=== PATIENT | female | born 1960 | race Caucasian/White ===

== ENCOUNTER → 2017-09-30 | Day surgery (SDC) | payer MEDICARE ==
[2017-09-28 13:54] LABS: BASOPHILS % 0.1 % (0.0-1.0); EOSINOPHILS # (AUTO) 0.1 (0.0-0.4); EOSINOPHILS % 0.9 % (0.0-6.0); HEMATOCRIT 33.5 % (34.2-44.1); HEMOGLOBIN 10.7 g/dL (12.0-16.0); LYMPHOCYTES % 21.6 % (18.0-39.1); MEAN CORPUSCULAR HEMOGLOBIN 27.9 pg (28-32); MEAN CORPUSCULAR HGB CONC 31.9 g/dL (31-35); MEAN CORPUSCULAR VOLUME 87.5 fL (81-99); MONOCYTES # (AUTO) 0.8 (0.2-0.8); MONOCYTES % 8.9 % (4.4-11.3); NEUTROPHILS # (AUTO) 6.2 (2.1-6.9); NEUTROPHILS % 68.1 % (38.7-80.0); PLATELET COUNT 203 x10e3/uL (140-360); RED BLOOD COUNT 3.83 x10e6/uL (3.6-5.1); RED CELL DISTRIBUTION WIDTH 14.3 % (11.7-14.4)
[~2017-09-30] MED LIST: ALBUTEROL0.63 MG/3 INH; ALPRAZOLAM0.5 M1 PO; ALPRAZOLAM0.5 MG; ASPIRIN BUFFER325 MG PO; ASPIRIN81 MG PO; BENTYL10 MG PO; CELLCEPT500 MG PO; COLCRYS0.6 MG PO; CYCLOBENZAPRINE5 MG PO; CYMBALTA60 MG PO; DEXILANT60 MG PO; DIAMOX250 MG PO; DILTIAZEM PO; FENOFIBRATE145 MG PO; HUMALOG100 UNIT/1 SC; HYDROCO/APAP; IMURAN50 MG PO; ISOSORBIDE DINI30 MG; ISOSORBIDE MONO30 M1 PO; LANTUS 3ML100 UNITS/ PO; LEVEMIR100 UNIT/1 SC; LINZESS PO; LYRICA150 MG PO; LYRICA75 MG PO; METOPROLOL SUCC50 MG PO; METOPROLOL TART50 MG PO; MIDAZOLAM HCL 2 MG/2 ML VIAL ONE; MONTELUKAST SOD10 MG PO; MORPHABOND PO; NITROSTAT0.4 MG SL; NORCO 10-325 T1 EACH PO; NOVOLOG MIX 70-33 M1 SC; NOVOLOG MIX 70-33 M1 SQ; NOVOLOG100 UNIT/1 SQ; PANTOPRAZOLE 40 MG 10ML VIAL ONE; PANTOPRAZOLE SO40 MG PO; PENTOXIFYLLINE400 MG PO; PLAVIX75 MG PO; PREDNISONE10 MG PO; PRINIVIL20 MG PO; PROPOFOL IV EMULSION 10 MG/ML 20 ML VIAL ONE; RANEXA500 MG PO; SIMVASTATIN40 MG PO; SYMBICORT 16010.2 GM; VERAMYST10 GM INH; XOPENEX; Z ERYTHROMYCIN PO; Z.0.GLUCOPHAGE500 MG PO; Z.0.PROTONIX40 MG PO; Z.0.RESTORIL30 MG PO; Z.0.SOMA350 MG PO; Z.1.CARBAMAZEPINE200 PO; Z.1.DOXYCYCLINE HY10 PO; ZOFRAN4 MG PO; ZYRTEC10 MG PO; [UNRECOGNIZED DRUG - OTHER] PO; [UNRECOGNIZED DRUG - OTHER] PO
--- OUTSIDE RECORDS SUMMARY | 2017-09-30 11:07 | XMS REPORT | Clinical Summary ---
Author Author [facility] Address Unknown Phone Unavailable Care Team Providers Care Machine Welt Butter Name Role Phone PCP Unavailable Allergies Active Allergy Reactions Severity Noted Date Comments Adhesive Rash Low 05/14/2015 Current Medications Prescription Sig. Disp. Refills Start End Date Status Date fenofibrate micronized Take 134 mg by mouth Active (LOFIBRA) 134 MG capsule every morning before breakfast. temazepam (RESTORIL) 30 Take 30 mg by mouth every Active mg capsule night as needed for Sleep. budesonide-formoterol Inhale 2 puffs by mouth Active (SYMBICORT) 160-4.5 via inhaler 2 (two) times mcg/actuation inhaler daily. clopidogrel (PLAVIX) 75 Take 75 mg by mouth Active mg tablet daily. mycophenolate (CELLCEPT) Take by mouth 2 (two) Active 500 mg tablet times daily. aspirin 81 MG EC tablet Take 81 mg by mouth Active daily. ALPRAZolam (XANAX) 1 MG Take 1 mg by mouth every Active tablet night as needed for Anxiety. pregabalin (LYRICA) 75 MG Take 75 mg by mouth 2 Active capsule (two) times daily. pantoprazole (PROTONIX) Take 40 mg by mouth Active 40 MG tablet daily. MONTELUKAST SODIUM Take by mouth. Active (MONTELUKAST ORAL) metoprolol (TOPROL-XL) Take 100 mg by mouth Active 100 MG 24 hr tablet daily. lisinopril Take 20 mg by mouth Active (PRINIVIL,ZESTRIL) 20 MG daily. tablet HYDROcodone-acetaminophen Take 1 tablet by mouth Active (NORCO 10-325) 10-325 mg every 6 (six) hours as per tablet needed for Pain. flunisolide (NASAREL) 29 2 sprays by Nasal route 2 Active mcg (0.025 %) nasal spray (two) times daily Dose is for each nostril. . isosorbide mononitrate Take 30 mg by mouth Active (IMDUR) 30 MG 24 hr daily. tablet rosuvastatin (CRESTOR) 40 Take 40 mg by mouth Active MG tablet daily. sucralfate (CARAFATE) 100 Take 1 g by mouth 4 Active mg/mL suspension (four) times daily. predniSONE (DELTASONE) 10 Take 10 mg by mouth Active MG tablet daily. insulin lispro (HUMALOG) Inject subcutaneously 3 Active 100 unit/mL injection (three) times daily before meals. morphine (MSIR) 15 MG Take 15 mg by mouth every Active tablet 4 (four) hours as needed for Pain. ondansetron (ZOFRAN) 8 MG Take by mouth every 8 Active tablet (eight) hours as needed for Nausea. pentoxifylline (TRENTAL) Take 400 mg by mouth 3 Active 400 mg CR tablet (three) times daily with meals. linaclotide 145 mcg Cap Take 145 mcg by mouth Active daily. IRON SUCROSE COMPLEX Inject intravenously. Active (VENOFER IV) diltiazem (CARDIZEM CD) Take 360 mg by mouth Active 360 MG 24 hr daily. 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 Expiration Model / Identifier Date Serial / Lot Wire K 2 Trcr 0.062 Ss Fracture/F Left: BIOMET:TRAUMA - [id number] ixation Wrist 0 / Implanted: Qty: 3 on 06/28/2016 by / Lui Nevarez MD Plt L 6h Va-Lcp 2 Column Fracture/F Left: SYNTHES:SYNTHES 06/28/2016 - [id number] ixation Wrist [place] / Implanted: Qty: 1 on 06/28/2016 by / [place] [id number] Scr Lck Va 2.4x20 Ns 02.210.120 - Fracture/F Left: SYNTHES:SYNTHES [id number] ixation Wrist [place] / Implanted: Qty: 2 on 06/28/2016 by / Lui Nevarez MD Scr Lck Va 2.4x24 Ns [id number] - Fracture/F Left: SYNTHES:SYNTHES [id number] ixation Wrist [place] / Implanted: Qty: 1 on 06/28/2016 by / Lui Nevarez MD Scr Lck Va 2.4x18 Ns .210.118 - Fracture/F Left: SYNTHES:SYNTHES [id number] ixation Wrist [place] / Implanted: Qty: 2 on 06/28/2016 by / Lui Nevarez MD Scr Crtx Lcp St T8 2.4x12 Ns Fracture/F Left: SYNTHES:SYNTHES 201.762 / 201.762 - [id number] ixation Wrist [place] / Implanted: Qty: 2 on 06/28/2016 by Lui Nevarez MD Scr Crtx Lcp St T8 2.4x14 Ns Fracture/F Left: SYNTHES:SYNTHES 201.764 / 201.764 - [id number] ixation Wrist [place] / Implanted: Qty: 2 on 06/28/2016 by Lui Nevarez MD [employer] Allograft Left: 11/08/2016 [id number] / Implanted: Qty: 1 on 06/28/2016 by Wrist [id number] / Lui Nevarez MD [id number] Results Not on fileafter 09/29/2016
--- NOTE | 2017-09-30 14:50 | Operative Report ---
DATE OF PROCEDURE: September 30, 2017 REFERRING PHYSICIAN: Dr. Margarito Garcia PROCEDURE PERFORMED: Esophagogastroduodenoscopy with esophageal dilatation, brushings and biopsies. INDICATIONS FOR ESOPHAGOGASTRODUODENOSCOPY: Dysphagia, odynophagia. MEDICATION: Patient was done under MAC. Please see anesthesiologist's note. PROCEDURE: Patient in left lateral decubitus position. Flexible fiberoptic Olympus gastroscope was introduced into the esophagus under direct visualization without any difficulty. Severe brenda esophagitis was noted. Brushings were obtained. The distal esophageal mucosa was ulcerated and there was a tight stricture at the GE junction that was traversed with gentle persistent pressure with the scope. The scope was then advanced with ease into the stomach traversing a small hiatal hernia. The mucosa overlying the antrum and the body revealed some patchy intense erythema and low-grade to moderate edema and biopsies were obtained and sent to stain for H. pylori. Pylorus appeared to be of normal contour and shape, was intubated with ease and the scope was advanced all the way to the 2nd portion of the duodenum. The scope was then withdrawn slowly and mucosa overlying the proximal 2nd portion as well as the duodenal bulb grossly appeared to be within normal limits. The scope was then withdrawn back into the stomach and retroflexed and mucosa overlying the fundus and the cardia appeared to be within normal limits. The scope was then straightened out. It was subsequently withdrawn. The previously described esophageal stricture was then dilated to a size 48-[place]. Patient tolerated procedure well. IMPRESSION 1. Severe brenda esophagitis. Brushings obtained. 2. Ulcerated distal esophagus. 3. Tight stricture at gastroesophageal junction dilated to size 48-[place]. 4. Small hiatal hernia. 5. Gastritis. PLAN: Follow up histology. Continue Protonix 40 mg 1 p.o. a.c. b.i.d. Initiate Diflucan 400 mg one p.o. daily. Job#: [id number] DG cc:ANABEL GARCIA DO
== END | disposition home or self-care (01) ==
LOC: ENDO 11:05
PROVIDERS: ATTEND Internal Medicine Gastroenterology
DX: K22.2 Esophageal obstruction (principal); K29.70 Gastritis, unspecified, without bleeding; B37.81 Candidal esophagitis; K22.10 Ulcer of esophagus without bleeding; K44.9 Diaphragmatic hernia without obstruction or gangrene; Z93.3 Colostomy status; I69.398 Other sequelae of cerebral infarction; J45.909 Unspecified asthma, uncomplicated; J84.9 Interstitial pulmonary disease, unspecified; I10 Essential (primary) hypertension; I25.2 Old myocardial infarction; M34.9 Systemic sclerosis, unspecified; I73.00 Raynaud's syndrome without gangrene; E11.9 Type 2 diabetes mellitus without complications; M81.0 Age-related osteoporosis without current pathological fracture; Z91.048 Other nonmedicinal substance allergy status; Z01.810 Encounter for preprocedural cardiovascular examination; Z01.812 Encounter for preprocedural laboratory examination; Z79.4 Long term (current) use of insulin
CPT/HCPCS: 36415 ×2; 43239; 43450; 82948; 85025; 87106; 87205; 88305; 88312; 93005; J2250; 43235

== ENCOUNTER 2018-02-18 10:12 | Inpatient (IN) | payer MEDICARE ==
[~2018-02-18] VITALS: Ht 162.6 cm; Wt 65.8 kg
[~2018-02-18 10:12] MED LIST changes: -MIDAZOLAM HCL 2 MG/2 ML VIAL ONE; -PANTOPRAZOLE 40 MG 10ML VIAL ONE; -PROPOFOL IV EMULSION 10 MG/ML 20 ML VIAL ONE
[2018-02-18] MEDS ORDERED: ONDANSETRON HCL INJ 2 MG/ML VIAL IV STA (10:30)
[2018-02-18] MEDS ORDERED: SODIUM CHLORIDE 0.9% 1000ML 1,000 ML IV STA (10:30)
[2018-02-18] MEDS ORDERED: MORPHINE SULFATE INJ 4 MG/ML INJ IV NR (10:30)
[2018-02-18] MEDS ORDERED: LORAZEPAM 1 MG TAB PO NR (11:00)
[2018-02-18] MEDS ORDERED: ONDANSETRON HCL 4 MG ORAL DISINTEGRATING TAB PO NR (11:00)
[2018-02-18 11:12] LABS: CLARITY,URINE CLEAR (CLEAR); COLOR,URINE YELLOW (YELLOW); LEUKOCYTE ESTERASE ,URINE NEGATIVE (NEGATIVE); NITRITE,URINE NEGATIVE (NEGATIVE); PROTEIN,URINE DIPSTICK NEGATIVE (NEGATIVE)
[2018-02-18 11:13] LABS: BILIRUBIN,URINE NEGATIVE (NEGATIVE); KETONES,URINE NEGATIVE (NEGATIVE); URINE UROBILINOGEN 0.2 mg/dL (0.2 - 1)
[2018-02-18 11:22] LABS: BACTERIA,URINE FEW /HPF; EPITHELIAL CELLS,URINE FEW /LPF; RBC,URINE 0-5 /HPF (0-5); RENAL EPITHELIAL CELLS,URINE FEW; TRANSITIONAL EPI CELLS,URINE FEW
--- NOTE | 2018-02-18 11:26 | Diagnostic Imaging Report ---
Examination: Single AP view of the chest. COMPARISON: None. INDICATION: Port infection DISCUSSION: Lines/tubes: Right chest port with tip in superior vena cava. Lungs: The lungs are well inflated and clear. No pneumonia or pulmonary edema. Pleura: Not pleural effusion or pneumothorax. Heart and mediastinum: The heart and the mediastinum are unremarkable. Bones and soft tissues: No acute bony abnormalities. IMPRESSION: 1. No acute cardiopulmonary abnormalities. Signed by: Dr. David Paz M.D. on 02/18/2018 11:25 AM
[2018-02-18 11:45] LABS: BASOPHILS % 0.2 % (0.0-1.0); EOSINOPHILS # (AUTO) 0.1 (0.0-0.4); EOSINOPHILS % 1.2 % (0.0-6.0); HEMOGLOBIN 7.5 g/dL (12.0-16.0); LYMPHOCYTES # (AUTO) 0.9 (1.0-3.2); LYMPHOCYTES % 17.8 % (18.0-39.1); MEAN CORPUSCULAR HEMOGLOBIN 33.2 pg (28-32); MEAN CORPUSCULAR HGB CONC 36.2 g/dL (31-35); MEAN CORPUSCULAR VOLUME 91.6 fL (81-99); MONOCYTES # (AUTO) 0.7 (0.2-0.8); MONOCYTES % 14.5 % (4.4-11.3); NEUTROPHILS # (AUTO) 3.4 (2.1-6.9); NEUTROPHILS % 65.5 % (38.7-80.0); PLATELET COUNT 158 x10e3/uL (140-360); RED BLOOD COUNT 2.26 x10e6/uL (3.6-5.1); RED CELL DISTRIBUTION WIDTH 16.4 % (11.7-14.4)
[2018-02-18 11:47] LABS: HEMATOCRIT 20.7 % (34.2-44.1)
[2018-02-18 12:00] LABS: INR 1.04; PROTHROMBIN TIME 14.5 seconds (11.9-14.5)
[2018-02-18 12:01] LABS: PARTIAL THROMBOPLASTIN TIME 35.3 seconds (23.8-35.5)
[2018-02-18 12:06] LABS: ALANINE AMINOTRANSFERASE 7 IU/L (0-55); ALBUMIN/GLOBULIN RATIO 0.6 (0.8-2.0); ALKALINE PHOSPHATASE 70 IU/L (40-150); AMYLASE 12 U/L (25-125); ANION GAP 15.2 mmol/L (8-16); BLOOD UREA NITROGEN 13 mg/dL (7-26); BUN/CREATININE RATIO 13 (6-25); CALCIUM 9.4 mg/dL (8.4-10.2); CARBON DIOXIDE 26 mmol/L (22-29); CHLORIDE 95 mmol/L (98-107); CREATININE, SERUM 1.02 mg/dL (0.57-1.11); EST GLOMERULAR FILTRATION RATE 56 ML/MIN (60-); GLUCOSE 327 mg/dL (74-118); LIPASE 20 U/L (8-78); MAGNESIUM 1.3 MG/DL (1.3-2.1); POTASSIUM 4.2 mmol/L (3.5-5.1); SODIUM 132 mmol/L (136-145)
--- NOTE | 2018-02-18 13:51 | Diagnostic Imaging Report ---
Examination: Single AP view of the chest. COMPARISON: None. INDICATION: PICC line placement DISCUSSION: Lines/tubes: Right chest port. Left PICC line placement with tip overlying the low SVC. Lungs: The lungs are well inflated and clear. No pneumonia or pulmonary edema. Pleura: No pleural effusion or pneumothorax. Heart and mediastinum: The heart and the mediastinum are unremarkable. Bones and soft tissues: No acute bony abnormalities. IMPRESSION: Left PICC line placement with tip overlying the SVC. Signed by: Dr. David Paz M.D. on 02/18/2018 1:49 PM
[2018-02-18] MEDS ORDERED: SODIUM CHLORIDE 0.9% 1000ML 1,000 ML ONE (14:23)
--- NOTE | 2018-02-18 16:26 | Diagnostic Imaging Report ---
EXAMINATION: CT scan of the chest with contrast. TECHNIQUE: Helical CT images of the chest were performed from the lung apices to the level of the adrenal glands after the intravenous administration of 100 cc of Omnipaque 300. Coronal and sagittal reformatted images were obtained.Dose modulation, iterative reconstruction, and/or weight based adjustment of the mA/kV was utilized to reduce the radiation dose to as low as reasonably achievable. COMPARISON: None. CLINICAL HISTORY:Chest port site infection DISCUSSION: LINES/TUBES: Right chest port with the distal tip in the superior vena cava. Left PICC line with distal tip in the superior vena cava. At the right chest port site no soft tissue abscess. LUNGS AND AIRWAYS: The lungs are clear. No pulmonary nodules, masses or consolidation. The airways are normal, without endobronchial lesions. PLEURA: No pneumothorax or pleural effusions. HEART AND MEDIASTINUM: Left thyroid gland hypodensity. Hhe heart and pericardium are within normal limits. The right internal jugular vein is partially visualized, however is expanded without contrast enhancement. Adjacent soft tissue swelling. Coronary artery calcifications. LYMPH NODES: There is no mediastinal, hilar or axillary lymphadenopathy. ABDOMEN: Limited contrast-enhanced views of the upper abdomen show no abnormality within the visualized liver, spleen, pancreas, or kidneys. The adrenal glands are normal. BONES AND SOFT TISSUES: No acute bony abnormalities. IMPRESSION: Partial visualization of the right internal jugular vein which appears thrombosed. Refer to neck CT report. No soft tissue abscess adjacent to the chest port. Signed by: Dr. David Paz M.D. on 02/18/2018 4:24 PM
--- NOTE | 2018-02-18 16:33 | Diagnostic Imaging Report ---
EXAMINATION: CT of the neck with contrast HISTORY: Right neck swelling, evaluate for port catheter infection COMPARISON: None TECHNIQUE: Multidetector helical axial images were obtained from the sternal notch through the skull base during intravenous infusion of iodinated contrast material. Images were reconstructed using soft tissue and bone algorithms and were viewed in multiplanar format. Intravenous contrast: 100 mL of Isovue-370. Dose modulation, iterative reconstruction, and/or weight based adjustment of the mA/kV was utilized to reduce the radiation dose to as low as reasonably achievable. FINDINGS: Soft tissues: A right port catheter is seen through the right IJ into the severe vena cava. There is diffuse nonenhancing filling defect and expansion along the right internal jugular vein (measuring about 2 cm in largest dimension) extending up to the level of C2. Mild adjacent wall thickening and enhancement. Prominent associated surrounding soft tissue stranding/swelling, without discrete drainable fluid collection at this time. Prominent swelling of the overlying sternocleidomastoid muscle and minimal mass effect upon the right carotid artery without stenosis. There is also a small amount of retropharyngeal fluid without discrete abscess. Nodes: No lymphadenopathy. Sinuses: Imaged portions unremarkable. Oral cavity: Unremarkable. Salivary glands: Parotid and submandibular glands unremarkable. Pharynx: Unremarkable. Larynx: Unremarkable. Thyroid gland: Approximately 1 cm hypoattenuating nodule in the left lobe. Upper esophagus: Unremarkable. Blood vessels: Prominent soft and calcified plaque in the right carotid bulb with probable moderate stenoses (approximately 50-69%), Bones: Unremarkable. Incidental findings: Status post stent placement and endovascular coiling of a left supraclinoid ICA aneurysm. Partially visualized left PICC line entering the superior vena cava. IMPRESSION: 1. Consistent with severe right internal jugular vein thrombophlebitis. 2. Associated right lower neck cellulitis without discrete abscess. Signed by: Dr. Narda Limon M.D. on 02/18/2018 4:31 PM
[2018-02-18] MEDS ORDERED: INSULIN REGULAR, HUMAN 100 UNIT/1 ML 3ML VIAL SQ NR (17:15)
[2018-02-18] MEDS ORDERED: DEXAMETHASONE SOD PHOS 10 MG/1 ML VIAL IV NR (17:15)
[2018-02-18] MEDS ORDERED: DEXTROSE 50% SYRINGE 50 ML IV PRN (17:15)
[2018-02-18] MEDS: ENOXAPARIN INJ 80 MG/0.8 ML SYR SC SCH (17:19)
[2018-02-18] MEDS ORDERED: CLINDAMYCIN PHOS 900MG/ 50ML 50 ML IV ONE (17:45)
[2018-02-18] MEDS ORDERED: CLINDAMYCIN PHOS 900MG/ 50ML 50 ML IV SCH (18:00)
[2018-02-18 19:23] VITALS: BP 120/57
[2018-02-18] MEDS: ONDANSETRON HCL INJ 2 MG/ML VIAL IV PRN (19:56)
[2018-02-18] MEDS: MORPHINE SULFATE 2 MG/ML SYR IV PRN (19:56)
[2018-02-18 20:00] VITALS: BP 120/57
[2018-02-18] MEDS: INSULIN REGULAR, HUMAN 100 UNIT/1 ML 3ML VIAL SQ SCH (20:42)
[2018-02-18] MEDS ORDERED: SODIUM CHLORIDE 0.9% 50ML 50 ML ONE (20:43)
[2018-02-18] MEDS ORDERED: IOPAMIDOL 370 MG/ML 200 ML INFUS..BTL INJ ONE (20:43)
[2018-02-18] MEDS ORDERED: SODIUM CHLORIDE 0.9% 250ML 250 ML ONE (21:30)
[2018-02-18] MEDS: VANCOMYCIN 1GM/NS 250 ML 250 ML IV SCH (21:56)
[2018-02-18] MEDS: CEFEPIME HCL 1 GM VIAL IV SCH (21:56)
[2018-02-19] VITALS (8 sets, daily range): BP systolic 100–143; BP diastolic 46–79
[2018-02-19] MEDS: CEFEPIME HCL 1 GM VIAL IV SCH ×2 (05:01→18:00)
--- NOTE | 2018-02-19 05:25 | Consultation ---
DATE OF CONSULTATION: February 18, 2018 PULMONARY MEDICINE CONSULT REFERRING PHYSICIAN: Dr. Israel Mccann HISTORY: Mrs. Good is a pleasant 57-year-old female with complex cervical and thoracic inlet vascular problems. The patient presented to [facility] on February 18, 2018. The patient had 4 days of neck pain. There were associated fevers after she received her first dose of IVIG infusion. The patient has had an implanted port into her right chest for 2 months. She also received IV iron through this port. The patient however began to have severe pain. She is having trouble handling her secretions. She is having some swelling in the right neck. She comes to the emergency room. CT of the neck confirms a sizeable right internal jugular vein thrombophlebitis. There were no discrete fluid collections. The patient has elected for emergency admission and evaluation. The patient with complex medical history. She is on azathioprine 50 mg per day and prednisone 5 mg per day. She is on other immunosuppressant medicines. She has a history of scleroderma, limited type. The patient furthermore has ulcerative colitis and renal disease. She has patulous esophagus that requires repetitive therapies and peripheral neuropathy and falls for which she has a diagnosis of CIDP. PAST MEDICAL HISTORY 1. Scleroderma, limited type. 2. Ulcerative colitis. 3. Patulous esophagus. 4. Chronic constipation. 5. Obesity. 6. Gastroparesis. 7. Renal disease. 8. Hyperlipidemia. 9. GERD. 10. Peripheral neuropathy. 11. Hypertensive heart disease. 12. Diabetes. 13. Depression. 14. Anemia secondary to chronic disease plus or minus other reasons. 15. She had brain aneurysm in 2009 with coiling. 16. Lumbar spine surgery at least twice. 17. She had a wrist plate insertion in August 2016 that was infected and had to be treated. MEDICATIONS: Medication list reviewed per electronic record. ALLERGIES: PLASTIC TAPE AND STATINS REPORTED. SOCIAL HISTORY: No smoking, no drinking, no drugs. 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 FAMILY HISTORY: Noncontributory. REVIEW OF SYSTEMS GENERAL: No weight changes. OPHTHALMOLOGIC: No double vision. ENT: No dry mouth. ENDOCRINE: No history of thyroid problems. PULMONARY: No asthma. CARDIAC: No heart attack. GI: No diarrhea. : No blood in the urine. DERMATOLOGIC: No recent rash. NEUROLOGIC: No seizures. PSYCHIATRIC: Recently euthymic. PHYSICAL EXAMINATION VITAL SIGNS: Afebrile, vital signs noted per electronic record at this time. She has heart rate from 90s to 60s and a recorded high temperature to 101.4 earlier in the emergency room. GENERAL: Calm in bed, although it hurts to see the light due to the referred right neck pain. HEENT: Normocephalic, atraumatic. NECK: Supple, but hurts to touch her right side. PULMONARY: No crackles, no wheezes. CARDIOVASCULAR: S1, S2. No murmurs, rubs, or gallops. ABDOMEN: Soft, nontender. EXTREMITIES: No clubbing, no cyanosis, no edema. INTEGUMENT: No rash. No purpura. Skin with grossly normal turgor on evaluation. LABS: Glucose 327, creatinine 1.0. White count 5, hematocrit 21, platelets 158,000. RDW is high with normal MCV. HCG negative. Magnesium 1.3, albumin 3.0, globulin is 5.3. LFTs otherwise normal. IMPRESSION 1. Acute right internal jugular thrombophlebitis. 2. Recently postoperative state, status post right chest port implantation. 3. Chronic inflammatory demyelinating polyneuropathy, recent diagnosis. Status post first round of IVIG in the last week. 4. History of brain aneurysm status post coiling in 2009. 5. Anemia, normocytic, high RDW. 6. History of ulcerative colitis. 7. History of patulous esophagus. 8. History of scleroderma and scleroderma lung disease. 9. Chronic constipation. 10. History of gastroparesis. 11. History of Raynaud's disease. 12. Hyperlipidemia, gastroesophageal reflux disease, peripheral neuropathy and falls, hypertension, diabetes, depression. PLAN: Agree with anticoagulation. The patient needs serial evaluations to ensure she is not bleeding. Check guaiac stool. Check hemoglobin A1c, B12, ESR, and LDH. Check reticulocyte count and iron studies since recently she is on B12 and iron repletion by her tail puller. The patient requires temporarily withholding of her azathioprine and with this low hemoglobin, we will check some urinalysis and complement levels. The patient needs aggressive antibiotics. We will see some progress in this, so hopefully she will not need intervention. Continue serial evaluations to ensure there is no progression of this process. Thank you very much Dr. Mccann and Dr. Pinon for allowing me a chance to participate in the care of Mrs. Good. Please do not hesitate to contact me if I could help in any way. Job#: [id number] ISHA
[2018-02-19 05:34] LABS: % IRON SATURATION 25 % (15-50); IRON 42 ug/dL (50-170); LACTATE DEHYDROGENASE 174 IU/L (125-220); TOTAL IRON BINDING CAPACITY 165 ug/dL (261-478); TRANSFERRIN 118 mg/dL (180-382)
[2018-02-19 05:52] LABS: FERRITIN > 2000.00 ng/mL (4.63-204.00)
[2018-02-19] MEDS: INSULIN REGULAR, HUMAN 100 UNIT/1 ML 3ML VIAL SQ SCH ×4 (07:30→20:57)
[2018-02-19] MEDS: VANCOMYCIN 1GM/NS 250 ML 250 ML IV SCH ×2 (09:00→20:47)
[2018-02-19] MEDS: ENOXAPARIN INJ 80 MG/0.8 ML SYR SC SCH ×2 (09:00→20:56)
[2018-02-19] MEDS ORDERED: SODIUM CHLORIDE 0.9% 250ML 250 ML ONE (09:21)
[2018-02-19] MEDS: MORPHINE SULFATE 2 MG/ML SYR IV PRN ×2 (09:30→15:58)
[2018-02-19] MEDS: ONDANSETRON HCL INJ 2 MG/ML VIAL IV PRN ×2 (09:30→15:58)
--- NOTE | 2018-02-19 10:17 | Consultation ---
DATE OF CONSULTATION: INFECTIOUS DISEASE CONSULTATION This is a patient of Dr. Jennifer Mccann admitted to [facility] in [place]. This is a 57-year-old female admitted to [facility] complaining of right side of the neck swelling and tenderness. Ms. Good was diagnosed with CIDP, chronic inflammatory demyelinating polyneuropathy, a couple of months ago. She received a right-sided Port-A-Cath for IVIG infusion. It took them a couple of months to approve through the insurance company and schedule it through the hospital. Finally, received the 1st dose of IVIG last Tuesday, which was about 4 or 5 days ago, and the 2nd dose was on Tuesday. On Tuesday, she started having a feeling of fever and neck pain. Therefore, she came in to [facility] for evaluation and treatment. CT scan of the neck was consistent with severe right internal jugular vein thrombophlebitis associated with right lower neck cellulitis with a discrete abscess. Chest x-ray was done which showed no acute cardiopulmonary abnormalities. She had a temp of 101.4 earlier during the admission yesterday about 7:23 p.m., which has improved. Blood culture was done, which is pending. Infectious disease was consulted for cellulitis/thrombophlebitis of right side of the neck. PAST MEDICAL HISTORY: Includes scleroderma, CIDP, ulcerative colitis, patulous esophagus, chronic constipation, GERD, hyperlipidemia, renal disease, obesity, gastroparesis, peripheral neuropathy, diabetes, depression, anemia, history of a brain aneurysm with coiling back in 2010, lumbar spine surgery at least twice. ALLERGIES: THE PATIENT IS ALLERGIC TO STATINS AND ADHESIVE TAPE. SOCIAL HISTORY: Denies ethanol, tobacco and recreational drug use. LABS, CULTURES AND RADIOLOGY: Mentioned in the section history of present illness. MEDICATIONS: List has been reviewed. From an infectious disease point of view, the patient is on cefepime and vancomycin. REVIEW OF SYSTEMS: Pain on the right side of the neck. Fever has improved. No nausea. No vomiting. No chest pain. No shortness of breath. PHYSICAL EXAMINATION GENERAL: Very pleasant, alert and oriented, in bed. VITALS: Temperature 99.8, pulse 54, respirations 18, blood pressure 103/53. CV: S1 and S2. CHEST: Equal expansion. Clear to auscultation. No acute distress. ABDOMEN: Soft and nontender. No distention. Bowel sounds positive in 4 quadrants. HEENT: Moist. No apparent JVD. EXTREMITIES: Moves all extremities. No significant edema. NEURO: No acute distress. LABORATORY VALUES: White count 5.12, hemoglobin 7.5, platelet count 158. Creatinine 1.02. ASSESSMENT AND PLAN: This is a pleasant, 57-year-old lady with a complicated past medical history as mentioned above, status post intravenous immunoglobulin times 2, now has right-sided neck, acute right internal jugular thrombophlebitis with associated cellulitis. No abscess picked up on the CAT scan. The patient was placed on vancomycin and cefepime. We will wait for the cultures to come back. Follow the patient on a clinical basis and follow up the labs. Further management of this patient is based on daily findings on laboratory and physical examination. This case was discussed with Dr. Goldberg. I want to thank you for this consult. Dictated by: CAIO Lloyd Job#: [id number]
[2018-02-19 12:18] LABS: CLARITY,URINE CLEAR (CLEAR); COLOR,URINE YELLOW (YELLOW); LEUKOCYTE ESTERASE ,URINE NEGATIVE (NEGATIVE); NITRITE,URINE NEGATIVE (NEGATIVE)
[2018-02-19 12:19] LABS: BILIRUBIN,URINE NEGATIVE (NEGATIVE); KETONES,URINE NEGATIVE (NEGATIVE); PROTEIN,URINE DIPSTICK NEGATIVE (NEGATIVE); URINE UROBILINOGEN 0.2 mg/dL (0.2 - 1)
[2018-02-19 12:29] LABS: BACTERIA,URINE RARE /HPF; EPITHELIAL CELLS,URINE FEW /LPF; RBC,URINE 0-5 /HPF (0-5); WBC,URINE (MAN) 0-5 /HPF (0-5)
[2018-02-19] MEDS ORDERED: ACETAMINOPHEN 325 MG TAB PO PRN (15:00)
[2018-02-19] MEDS ORDERED: ALBUTEROL SULF 0.083% NEB SOLN 3 ML NEB INH PRN (17:45)
[2018-02-19] MEDS ORDERED: MORPHABOND PO SCH (17:45)
[2018-02-19] MEDS ORDERED: NITROGLYCERIN 0.4 MG SUBL SL SCH (17:45)
[2018-02-19] MEDS ORDERED: TEMAZEPAM 30 MG PO SCH (17:45)
[2018-02-19] MEDS ORDERED: HYDROCODONE/APAP 10MG-325MG TAB PO SCH (17:45)
[2018-02-19] MEDS ORDERED: NON-FORMULARY MEDICATION (Ondansetron Hcl* (Zofran*) 8 MG) PO PRN (17:45)
--- NOTE | 2018-02-19 17:56 | Progress Note ---
DATE: February 19, 2018 PULMONARY MEDICINE PROGRESS NOTE SUBJECTIVE: Mrs. Good was seen and examined at bedside. Her neck is grossly normal. She still has a lot of pain. The patient is tolerating so far the anticoagulation without sheryl bleeding. REVIEW OF SYSTEMS: No headaches, no vision changes. OBJECTIVE VITAL SIGNS: Afebrile, vital signs noted per electronic record. GENERAL: In no acute distress, alert and calm. HEENT: Normocephalic, atraumatic. NECK: Supple. Throat is midline. LUNGS: Bilateral air entry, mostly clear. CARDIOVASCULAR: S1 and S2. No murmurs, rubs, or gallops. ABDOMEN: Soft and nontender. EXTREMITIES: No clubbing. No cyanosis. There is no edema. INTEGUMENT: No rash, no purpura. LABS: BUN 13, creatinine 1.0. White count 5, hematocrit 21, and platelets 158. IMPRESSION AND PLAN 1. Acute right internal jugular thrombophlebitis. 2. Associated cellulitis. 3. Semi-recent right chest port placement. 4. Chronic inflammatory demyelinating polyneuropathy, status post one dose of IVIG. 5. History of scleroderma. 6. History of ulcerative colitis. At this time, we will continue close followup on blood thinners. Continue antibiotics and vancomycin trough will be due soon. We will help to continue the propagation on the clot. Follow up closely. Patient at this time will get serial evaluation of electrolytes and serial neurologic checks as well. Patient continues to have the azathioprine on hold as well as prednisone for short term and we will followup and see when we should restart these. GI consult to resume some GI medications. Job#: [id number] JONATHAN
[2018-02-19] MEDS ORDERED: AZATHIOPRINE 50 MG TAB PO SCH (18:00)
[2018-02-19] MEDS: METOPROLOL TARTRATE 50 MG TAB PO SCH (18:00)
[2018-02-19] MEDS: LISINOPRIL 20 MG TAB PO SCH (18:00)
[2018-02-19] MEDS: CLOPIDOGREL BISULFATE 75 MG TAB PO SCH (18:00)
[2018-02-19] MEDS ORDERED: FENOFIBRATE145 MG (18:39)
[2018-02-19] MEDS ORDERED: LYRICA75 MG (18:39)
[2018-02-19] MEDS ORDERED: CLONIDINE1 EAC1 (18:39)
[2018-02-19] MEDS ORDERED: CARAFATE1 GM/10 ML PO (18:43)
[2018-02-19] MEDS ORDERED: ZOFRAN ODT4 MG (18:43)
[2018-02-19] MEDS ORDERED: ALPRAZOLAM 0.5 MG TAB PO PRN (20:00)
[2018-02-19] MEDS: FLUTICASONE PROPIONATE NASAL SPRAY NS SCH (20:25)
[2018-02-19] MEDS ORDERED: ONDANSETRON HCL 4 MG ORAL DISINTEGRATING TAB PO PRN (20:30)
[2018-02-19] MEDS: PREDNISONE 10 MG TAB PO SCH (20:46)
[2018-02-19] MEDS: PENTOXIFYLLINE 400 MG TAB CR PO SCH (20:46)
[2018-02-19] MEDS: PANTOPRAZOLE SOD 40 MG TABEC PO SCH (20:46)
[2018-02-19] MEDS: DILTIAZEM HCL 180 MG CAP ER PO SCH (20:46)
[2018-02-19] MEDS: TEMAZEPAM 15 MG CAP PO SCH (20:47)
[2018-02-19] MEDS: SIMVASTATIN 20 MG TAB PO SCH (20:47)
[2018-02-19] MEDS: MORPHINE SULFATE 15MG TAB CR PO SCH (20:57)
[2018-02-19] MEDS: INSULIN DETEMIR 100 UNIT/ML PEN SQ SCH (20:57)
[2018-02-19] MEDS ORDERED: FLUTICASONE PROPIONATE NASAL SPRAY NS SCH (21:00)
[2018-02-19] MEDS ORDERED: INSULIN DETEMIR 24 UNIT SC SCH (21:00)
[2018-02-20] VITALS (7 sets, daily range): BP systolic 92–132; BP diastolic 51–64
[2018-02-20] MEDS: MORPHINE SULFATE 2 MG/ML SYR IV PRN ×2 (04:24→10:54)
[2018-02-20] MEDS: CEFEPIME HCL 1 GM VIAL IV SCH (05:49)
[2018-02-20] MEDS: ONDANSETRON HCL INJ 2 MG/ML VIAL IV PRN ×2 (05:49→12:42)
[2018-02-20] MEDS: MORPHINE SULFATE 15MG TAB CR PO SCH ×3 (05:50→22:00)
[2018-02-20 06:34] LABS: BASOPHILS % 0.2 % (0.0-1.0); EOSINOPHILS % 0.4 % (0.0-6.0); LYMPHOCYTES # (AUTO) 1.1 (1.0-3.2); LYMPHOCYTES % 19.8 % (18.0-39.1); MEAN CORPUSCULAR HEMOGLOBIN 32.4 pg (28-32); MEAN CORPUSCULAR HGB CONC 35.5 g/dL (31-35); MEAN CORPUSCULAR VOLUME 91.4 fL (81-99); MONOCYTES # (AUTO) 0.5 (0.2-0.8); MONOCYTES % 10.2 % (4.4-11.3); NEUTROPHILS # (AUTO) 3.6 (2.1-6.9); NEUTROPHILS % 68.6 % (38.7-80.0); PLATELET COUNT 154 x10e3/uL (140-360); RED BLOOD COUNT 1.85 x10e6/uL (3.6-5.1); RED CELL DISTRIBUTION WIDTH 17.3 % (11.7-14.4)
[2018-02-20 06:46] LABS: HEMATOCRIT 16.9 % (34.2-44.1)
[2018-02-20] MEDS: PANTOPRAZOLE SOD 40 MG TABEC PO SCH ×2 (08:25→16:47)
[2018-02-20] MEDS: VANCOMYCIN 1GM/NS 250 ML 250 ML IV SCH ×2 (08:26→21:45)
[2018-02-20] MEDS: INSULIN REGULAR, HUMAN 100 UNIT/1 ML 3ML VIAL SQ SCH ×4 (08:26→21:00)
[2018-02-20] MEDS: ASPIRIN 81 MG CHEW TAB PO SCH (08:26)
[2018-02-20] MEDS: DILTIAZEM HCL 180 MG CAP ER PO SCH (08:26)
[2018-02-20] MEDS: METOPROLOL TARTRATE 50 MG TAB PO SCH (08:27)
[2018-02-20] MEDS: LISINOPRIL 20 MG TAB PO SCH (08:27)
[2018-02-20] MEDS: CLOPIDOGREL BISULFATE 75 MG TAB PO SCH (08:27)
[2018-02-20] MEDS: PENTOXIFYLLINE 400 MG TAB CR PO SCH (08:27)
[2018-02-20] MEDS: ENOXAPARIN INJ 80 MG/0.8 ML SYR SC SCH ×2 (08:27→21:10)
[2018-02-20] MEDS: PREDNISONE 10 MG TAB PO SCH (08:27)
[2018-02-20] MEDS: MONTELUKAST SODIUM 10 MG TAB PO SCH (08:27)
[2018-02-20] MEDS ORDERED: SODIUM CHLORIDE 0.9% 250ML 250 ML IV ONE ×2 (08:30→16:30)
[2018-02-20] MEDS ORDERED: DILTIAZEM HCL 360 MG PO SCH (09:00)
[2018-02-20] MEDS: FLUTICASONE PROPIONATE NASAL SPRAY NS SCH ×2 (09:00→16:52)
[2018-02-20] MEDS ORDERED: FLUTICASONE FUROATE INH SCH (09:00)
[2018-02-20] MEDS ORDERED: NON-FORMULARY MEDICATION (Insulin Detemir (Levemir) 30 UNITS) SC SCH (09:00)
[2018-02-20] MEDS ORDERED: SODIUM CHLORIDE 0.9% 250ML 250 ML ONE (12:38)
--- NOTE | 2018-02-20 13:40 | Progress Note ---
DATE: February 20, 2018 PULMONARY MEDICINE PROGRESS NOTE SUBJECTIVE: Ms. Good was seen and examined at bedside. She continues to have slow to no progress. Her right neck continues to hurt just as much as before. Swelling is not coming down yet she says. However, white count is improved. She has critical anemia today. REVIEW OF SYSTEMS: No GI bleed. No urinary retention. OBJECTIVE VITAL SIGNS: Afebrile, vital signs noted per electronic record. GENERAL: In no acute distress, alert and calm. HEENT: Normocephalic, atraumatic. NECK: Supple. Throat is midline. LUNGS: Bilateral air entry, limited but clear. CARDIOVASCULAR: S1 and S2. No murmurs, rubs, or gallops. ABDOMEN: Soft and nontender. EXTREMITIES: No clubbing. No cyanosis. There is no edema. INTEGUMENT: No rash, no purpura. LABS: Hemoglobin 6, 16.9 hematocrit, 5.3 white count, 13 BUN, 1.0 creatinine. IMPRESSION AND PLAN 1. Critical anemia. 2. Chronic anemia component. 3. Right internal jugular vein thrombophlebitis. 4. Chronic inflammatory demyelinating polyneuropathy under immunoglobulin therapy. 5. Right chest venous port implant state. Continue close followup. IV antibiotics will be continued. Continue blood thinners. Serial evaluation of neck. Blood products as needed. The patient is in guarded condition still. Job#: [id number]
[2018-02-20] MEDS ORDERED: ALTEPLASE RECOMBINANT 2 MG/2 ML VIAL IV ONE (16:45)
[2018-02-20] MEDS ORDERED: MORPHINE SULFATE INJ 4 MG/ML INJ IV PRN (17:45)
[2018-02-20] MEDS: INSULIN DETEMIR 100 UNIT/ML PEN SQ SCH (21:00)
[2018-02-20] MEDS ORDERED: SIMVASTATIN 40 MG TAB PO SCH (21:00)
[2018-02-20] MEDS: SIMVASTATIN 20 MG TAB PO SCH (21:05)
[2018-02-20] MEDS: TEMAZEPAM 15 MG CAP PO SCH (21:05)
[2018-02-21] VITALS (7 sets, daily range): BP systolic 130–182; BP diastolic 61–78
[2018-02-21 00:24] LABS: BASOPHILS % 0.1 % (0.0-1.0); EOSINOPHILS % 0.3 % (0.0-6.0); HEMATOCRIT 24.1 % (34.2-44.1); HEMOGLOBIN 8.5 g/dL (12.0-16.0); LYMPHOCYTES # (AUTO) 1.3 (1.0-3.2); LYMPHOCYTES % 19.5 % (18.0-39.1); MEAN CORPUSCULAR HEMOGLOBIN 31.7 pg (28-32); MEAN CORPUSCULAR HGB CONC 35.3 g/dL (31-35); MEAN CORPUSCULAR VOLUME 89.9 fL (81-99); MONOCYTES # (AUTO) 0.6 (0.2-0.8); MONOCYTES % 8.6 % (4.4-11.3); NEUTROPHILS # (AUTO) 4.8 (2.1-6.9); NEUTROPHILS % 70.2 % (38.7-80.0); PLATELET COUNT 151 x10e3/uL (140-360); RED BLOOD COUNT 2.68 x10e6/uL (3.6-5.1); RED CELL DISTRIBUTION WIDTH 16.6 % (11.7-14.4)
[2018-02-21] MEDS: CEFEPIME HCL 1 GM VIAL IV SCH ×2 (05:57→17:09)
[2018-02-21] MEDS: MORPHINE SULFATE 15MG TAB CR PO SCH ×3 (06:00→22:00)
[2018-02-21] MEDS: VANCOMYCIN 1GM/NS 250 ML 250 ML IV SCH ×2 (09:00→21:00)
[2018-02-21] MEDS: PANTOPRAZOLE SOD 40 MG TABEC PO SCH ×2 (09:04→15:18)
[2018-02-21] MEDS: ASPIRIN 81 MG CHEW TAB PO SCH (09:04)
[2018-02-21] MEDS: FLUTICASONE PROPIONATE NASAL SPRAY NS SCH ×2 (09:04→17:09)
[2018-02-21] MEDS: PREDNISONE 10 MG TAB PO SCH (09:05)
[2018-02-21] MEDS: DILTIAZEM HCL 180 MG CAP ER PO SCH (09:05)
[2018-02-21] MEDS: LISINOPRIL 20 MG TAB PO SCH (09:05)
[2018-02-21] MEDS: CLOPIDOGREL BISULFATE 75 MG TAB PO SCH (09:05)
[2018-02-21] MEDS: METOPROLOL TARTRATE 50 MG TAB PO SCH (09:05)
[2018-02-21] MEDS: ENOXAPARIN INJ 80 MG/0.8 ML SYR SC SCH ×2 (09:06→21:15)
[2018-02-21] MEDS: PENTOXIFYLLINE 400 MG TAB CR PO SCH (09:06)
[2018-02-21] MEDS: MONTELUKAST SODIUM 10 MG TAB PO SCH (09:06)
[2018-02-21] MEDS: INSULIN REGULAR, HUMAN 100 UNIT/1 ML 3ML VIAL SQ SCH ×4 (09:06→21:00)
[2018-02-21] MEDS ORDERED: HYDROMORPHONE 2MG/ML 2 MG/ML ML IV PRN (11:45)
--- NOTE | 2018-02-21 13:34 | Progress Note ---
DATE: February 21, 2018 PULMONARY MEDICINE PROGRESS NOTE SUBJECTIVE: Ms. Good was seen and examined at bedside. She cites mild improvement in pain and swelling. Patient able to eat when she likes the food. Patient with slightly more energy today. REVIEW OF SYSTEMS: No headaches, no diarrhea. OBJECTIVE VITAL SIGNS: Afebrile. Vital signs noted per electronic record. GENERALLY: No acute distress, alert and calm. HEENT: Normocephalic, atraumatic. NECK: Supple. Throat midline. LUNGS: Bilateral air entry, clear. CARDIOVASCULAR: S1 and S2. No murmurs, rubs or gallops. ABDOMINAL: Soft, nontender. EXTREMITIES: No clubbing, no cyanosis. There is no edema. INTEGUMENT: No rash. No purpura. LABS: BUN 13, creatinine 0.2. White count 7, hematocrit 24, platelets 151. IMPRESSION AND PLAN 1. Infectious thrombophlebitis. 2. Acute right internal jugular vein thrombosis. 3. Recent implantation of right chest wall port/venous access. 4. Weakness. 5. History of either mixed connective tissue disease versus scleroderma, resolving. Continue to follow lab serially at this time. Swelling is slowly going down for the first day. Continue antibiotics. Continue treatment of anemia, and hematology consult is pending. Currently on prednisone with azathioprine being held, which is fine. Will continue to follow up closely. Job#: [id number] EV
[2018-02-21] MEDS: INSULIN DETEMIR 100 UNIT/ML PEN SQ SCH (21:00)
[2018-02-21] MEDS: TEMAZEPAM 15 MG CAP PO SCH (21:15)
[2018-02-21] MEDS: SIMVASTATIN 20 MG TAB PO SCH (21:15)
[2018-02-22] VITALS (8 sets, daily range): BP systolic 117–175; BP diastolic 67–91
[2018-02-22] MEDS ORDERED: PANTOPRAZOLE 40 MG 10ML VIAL IV STA (00:01)
[2018-02-22] MEDS ORDERED: PANTOPRAZOLE 40 MG 10ML VIAL IV SCH (00:15)
[2018-02-22] MEDS ORDERED: METOCLOPRAMIDE HCL 10 MG/2ML VIAL IV ONE (00:15)
[2018-02-22 04:45] LABS: BASOPHILS % 0.1 % (0.0-1.0); EOSINOPHILS # (AUTO) 0.1 (0.0-0.4); EOSINOPHILS % 0.8 % (0.0-6.0); HEMATOCRIT 26.1 % (34.2-44.1); HEMOGLOBIN 8.8 g/dL (12.0-16.0); LYMPHOCYTES # (AUTO) 1.9 (1.0-3.2); LYMPHOCYTES % 24.3 % (18.0-39.1); MEAN CORPUSCULAR HEMOGLOBIN 31.7 pg (28-32); MEAN CORPUSCULAR HGB CONC 33.7 g/dL (31-35); MEAN CORPUSCULAR VOLUME 93.9 fL (81-99); MONOCYTES # (AUTO) 0.7 (0.2-0.8); MONOCYTES % 9.5 % (4.4-11.3); NEUTROPHILS # (AUTO) 4.8 (2.1-6.9); NEUTROPHILS % 63.5 % (38.7-80.0); PLATELET COUNT 179 x10e3/uL (140-360); RED BLOOD COUNT 2.78 x10e6/uL (3.6-5.1); RED CELL DISTRIBUTION WIDTH 17.4 % (11.7-14.4)
[2018-02-22 05:07] LABS: ANION GAP 12.9 mmol/L (8-16); BLOOD UREA NITROGEN 8 mg/dL (7-26); BUN/CREATININE RATIO 10 (6-25); CALCIUM 9.1 mg/dL (8.4-10.2); CARBON DIOXIDE 27 mmol/L (22-29); CHLORIDE 102 mmol/L (98-107); CREATININE, SERUM 0.82 mg/dL (0.57-1.11); EST GLOMERULAR FILTRATION RATE > 60 ML/MIN (60-); GLUCOSE 233 mg/dL (74-118); POTASSIUM 3.9 mmol/L (3.5-5.1); SODIUM 138 mmol/L (136-145)
[2018-02-22] MEDS: METOCLOPRAMIDE HCL 10 MG/2ML VIAL IV SCH ×3 (06:25→17:16)
[2018-02-22] MEDS: CEFEPIME HCL 1 GM VIAL IV SCH ×2 (06:25→17:16)
[2018-02-22] MEDS: MORPHINE SULFATE 15MG TAB CR PO SCH ×3 (06:25→22:42)
[2018-02-22] MEDS: PANTOPRAZOLE 40 MG 10ML VIAL IV SCH ×2 (08:53→17:16)
[2018-02-22] MEDS: DILTIAZEM HCL 180 MG CAP ER PO SCH (08:53)
[2018-02-22] MEDS: ASPIRIN 81 MG CHEW TAB PO SCH (08:53)
[2018-02-22] MEDS: METOPROLOL TARTRATE 50 MG TAB PO SCH (08:54)
[2018-02-22] MEDS: ENOXAPARIN INJ 80 MG/0.8 ML SYR SC SCH ×2 (08:54→21:46)
[2018-02-22] MEDS: PENTOXIFYLLINE 400 MG TAB CR PO SCH (08:54)
[2018-02-22] MEDS: CLOPIDOGREL BISULFATE 75 MG TAB PO SCH (08:54)
[2018-02-22] MEDS: MONTELUKAST SODIUM 10 MG TAB PO SCH (08:54)
[2018-02-22] MEDS: LISINOPRIL 20 MG TAB PO SCH (08:54)
[2018-02-22] MEDS: PREDNISONE 10 MG TAB PO SCH (08:54)
[2018-02-22] MEDS: FLUTICASONE PROPIONATE NASAL SPRAY NS SCH ×2 (09:00→17:16)
[2018-02-22] MEDS: INSULIN REGULAR, HUMAN 100 UNIT/1 ML 3ML VIAL SQ SCH ×4 (09:00→21:45)
[2018-02-22] MEDS: VANCOMYCIN 1GM/NS 250 ML 250 ML IV SCH ×2 (10:07→21:51)
--- NOTE | 2018-02-22 13:36 | Progress Note ---
DATE: February 22, 2018 PULMONARY MEDICINE PROGRESS NOTE SUBJECTIVE: Ms. Good was seen and examined at bedside. Patient continues to have steady progress. There is less right neck pain. Right neck swelling is slightly decreased. Patient is eating some of her food. She is also mobilizing better. REVIEW OF SYSTEMS: No headaches, no chest pain. OBJECTIVE VITAL SIGNS: Afebrile. Vital signs noted per electronic record. GENERALLY: No acute distress, alert and calm. HEENT: Normocephalic, atraumatic. NECK: Supple. Throat midline. LUNGS: Bilateral air entry, a few rare rhonchi, mostly clear. CARDIOVASCULAR: S1 and S2. No murmurs, rubs or gallops. ABDOMINAL: Soft, nontender. EXTREMITIES: No clubbing, no cyanosis. There is no edema. INTEGUMENT: No rash. No purpura. LABS: Creatinine 0.8, potassium 3.9. Hematocrit 26. IMPRESSION AND PLAN 1. Acute right internal jugular thrombophlebitis. 2. Status post recent chest port placement. 3. 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 4. History of scleroderma versus mixed connective tissue disease versus other. Continue close followup. Await the complement levels. Await the CHANDANA findings. Continue to follow up on antibiotics. Anticoagulation will be continued. Job#: [id number] MARY ANN
[2018-02-22] MEDS: SIMVASTATIN 20 MG TAB PO SCH (21:45)
[2018-02-22] MEDS: TEMAZEPAM 15 MG CAP PO SCH (21:45)
[2018-02-22] MEDS: INSULIN DETEMIR 100 UNIT/ML PEN SQ SCH (21:46)
[2018-02-23] VITALS: BP 166/70
[2018-02-23] MEDS: METOCLOPRAMIDE HCL 10 MG/2ML VIAL IV SCH ×3 (00:30→12:00)
[2018-02-23 04:00] VITALS: BP 161/79
[2018-02-23] MEDS: ONDANSETRON HCL INJ 2 MG/ML VIAL IV PRN (05:36)
[2018-02-23] MEDS: CEFEPIME HCL 1 GM VIAL IV SCH (06:32)
[2018-02-23] MEDS: MORPHINE SULFATE 15MG TAB CR PO SCH (06:43)
[2018-02-23 07:40] VITALS: BP 166/79
[2018-02-23] MEDS: VANCOMYCIN 1GM/NS 250 ML 250 ML IV SCH (08:10)
[2018-02-23] MEDS: PANTOPRAZOLE 40 MG 10ML VIAL IV SCH (08:10)
[2018-02-23] MEDS: DILTIAZEM HCL 180 MG CAP ER PO SCH (08:11)
[2018-02-23] MEDS: ASPIRIN 81 MG CHEW TAB PO SCH (08:11)
[2018-02-23] MEDS: FLUTICASONE PROPIONATE NASAL SPRAY NS SCH (08:11)
[2018-02-23] MEDS: ENOXAPARIN INJ 80 MG/0.8 ML SYR SC SCH (08:14)
[2018-02-23] MEDS: PREDNISONE 10 MG TAB PO SCH (08:14)
[2018-02-23] MEDS: LISINOPRIL 20 MG TAB PO SCH (08:14)
[2018-02-23] MEDS: MONTELUKAST SODIUM 10 MG TAB PO SCH (08:14)
[2018-02-23] MEDS: METOPROLOL TARTRATE 50 MG TAB PO SCH (08:14)
[2018-02-23] MEDS: PENTOXIFYLLINE 400 MG TAB CR PO SCH (08:14)
[2018-02-23] MEDS: CLOPIDOGREL BISULFATE 75 MG TAB PO SCH (08:14)
[2018-02-23] MEDS: INSULIN REGULAR, HUMAN 100 UNIT/1 ML 3ML VIAL SQ SCH ×2 (08:16→11:30)
[2018-02-23 08:22] VITALS: BP 166/79
[2018-02-23] MEDS ORDERED: INSULIN DETEMIR 100 UNIT/ML PEN SQ SCH (09:00)
[2018-02-23 13:15] VITALS: BP 163/73
[2018-02-23] MEDS ORDERED: DOXYCYCLINE HY100 MG PO (13:15)
[2018-02-23] MEDS ORDERED: REGLAN5 MG PO (13:15)
[2018-02-23] MEDS ORDERED: eliquis PO (13:16)
--- NOTE | 2018-02-23 14:11 | Progress Note ---
DATE: February 23, 2018 PULMONARY MEDICINE PROGRESS NOTE SUBJECTIVE: Ms. Good was seen and examined at bedside. The patient continues to have steady improvement. There is less pain to her neck. She is not having any fevers right now. The patient is eating. REVIEW OF SYSTEMS: No bleeding, chest pain. OBJECTIVE VITAL SIGNS: Afebrile. Vital signs noted per electronic record. GENERALLY: No acute distress. HEENT: Normocephalic. NECK: Supple. LUNGS: Bilateral air entry. CARDIOVASCULAR: S1 and S2. ABDOMINAL: Soft. EXTREMITIES: No edema. NEUROLOGIC: Nonfocal. IMPRESSION AND PLAN 1. Right internal jugular thrombophlebitis. 2. No high evidence of septic thrombophlebitis. 3. Scleroderma versus mixed connective tissue disease. 4. History of chronic idiopathic demyelinating polyneuropathy, neurologic. As the patient is really improved, she can be discharged on anticoagulation. 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 Antibiotics will be finished. Continue to follow the anemia and the effect of the blood thinners. She continues to get better. She is to resume her antiscleroderma medications. Job#: [id number] EV
== END 2018-02-23 13:55 | disposition home or self-care (01) | DRG 300 ==
LOC: ER 10:12 → ERHOLD 17:42 → MED/SURG2 18:48
PROC: 02HV33Z Insertion of Infusion Device into Superior Vena Cava, Percutaneous Approach (ICD-10-PCS; principal; 2018-02-18)
PROC: 30233N1 Transfusion of Nonautologous Red Blood Cells into Peripheral Vein, Percutaneous Approach (ICD-10-PCS; 2018-02-20)
DX: I80.8 Phlebitis and thrombophlebitis of other sites (principal); G61.81 Chronic inflammatory demyelinating polyneuritis; L03.221 Cellulitis of neck; K51.90 Ulcerative colitis, unspecified, without complications; M34.9 Systemic sclerosis, unspecified; E11.65 Type 2 diabetes mellitus with hyperglycemia; R53.1 Weakness; D63.8 Anemia in other chronic diseases classified elsewhere; E78.5 Hyperlipidemia, unspecified; K59.09 Other constipation; E11.22 Type 2 diabetes mellitus with diabetic chronic kidney disease; I13.10 Hypertensive heart and chronic kidney disease without heart failure, with stage 1 through stage 4 chronic kidney disease, or unspecified chronic kidney disease; N18.9 Chronic kidney disease, unspecified; E11.43 Type 2 diabetes mellitus with diabetic autonomic (poly)neuropathy; K31.84 Gastroparesis; R13.10 Dysphagia, unspecified; R53.81 Other malaise; K21.9 Gastro-esophageal reflux disease without esophagitis; F32.9 Major depressive disorder, single episode, unspecified; Z79.4 Long term (current) use of insulin; Z79.02 Long term (current) use of antithrombotics/antiplatelets; Z79.82 Long term (current) use of aspirin; Z79.52 Long term (current) use of systemic steroids; Z88.8 Allergy status to other drugs, medicaments and biological substances
CPT/HCPCS: 36415; 36430; 36569; 70491; 71045; 71260; 80048; 80053; 80202; 81001; 82150; 82270; 82607; 82728; 82746; 82948; 83540; 83605; 83615; 83690; 83735; 84466; 84702; 85025; 85045; 85610; 85651; 85730; 86039; 86160; 86850; 86900; 86920; 87040; 93971; 99284; J0692; J1650; J2270; J2405; J2765; J2997; J3370; J7030; J7050; P9016; Q9967

== ENCOUNTER 2018-05-31 21:41 | Observation (INO) | payer MEDICARE ==
[~2018-05-31] VITALS: Ht 160 cm; Wt 60.0 kg
[~2018-05-31 21:41] MED LIST changes: +CARAFATE1 GM/10 ML PO; +CLONIDINE1 EAC1 PO; +DOXYCYCLINE HY100 MG PO; +FENOFIBRATE145 MG; +LYRICA75 MG; +REGLAN5 MG PO; +ZOFRAN ODT4 MG; +eliquis PO
--- OUTSIDE RECORDS SUMMARY | 2018-05-31 21:46 | XMS REPORT | Clinical Summary ---
Author Author ARMANDO [email or web address] Organization [facility] [employer] [facility] Address Unknown Phone Unavailable Care Team Providers Care Logistics Analytics Manager Name Role Phone Randolph Pinon PCP Allergies Comments Active Allergy Reactions Severity Noted Date Adhesive Rash Low 05/14/2015 Medications End Date Status Medication Sig Dispensed Refills Start Date Active fenofibrate micronized Take 145 mg 0 (LOFIBRA) 134 MG capsule by mouth every morning before breakfast . Active temazepam (RESTORIL) 30 Take 30 mg by 0 mg capsule mouth every night as needed for Sleep. Active budesonide-formoterol Inhale 2 0 (SYMBICORT) 160-4.5 puffs by mcg/actuation inhaler mouth via inhaler 2 (two) times daily. Active clopidogrel (PLAVIX) 75 Take 75 mg by 0 mg tablet mouth daily. Active aspirin 81 MG EC tablet Take 81 mg by 0 mouth daily. Active ALPRAZolam (XANAX) 1 MG Take 1 mg by 0 tablet mouth every night as needed for Anxiety. Active pregabalin (LYRICA) 75 MG Take 75 mg by 0 capsule mouth 2 (two) times daily. Active pantoprazole (PROTONIX) Take 40 mg by 0 40 MG tablet mouth daily. Active MONTELUKAST SODIUM Take 30 mg by 0 (MONTELUKAST ORAL) mouth daily . Active metoprolol (TOPROL-XL) Take 100 mg 0 100 MG 24 hr tablet by mouth 2 (two) times daily . Active lisinopril Take 20 mg by 0 (PRINIVIL,ZESTRIL) 20 MG mouth 2 (two) tablet times daily . Active HYDROcodone-acetaminophen Take 1 tablet 0 (NORCO 10-325) 10-325 mg by mouth per tablet every 6 (six) hours as needed for Pain. Active flunisolide (NASAREL) 29 2 sprays by 0 mcg (0.025 %) nasal spray Nasal route 2 (two) times daily Dose is for each nostril. . Active sucralfate (CARAFATE) 100 Take 1 g by 0 mg/mL suspension mouth 4 (four) times daily. Active predniSONE (DELTASONE) 10 Take 5 mg by 0 MG tablet mouth daily . Active morphine (MSIR) 15 MG Take 15 mg by 0 tablet mouth every 4 (four) hours as needed for Pain. Active ondansetron (ZOFRAN) 8 MG Take by mouth 0 tablet every 8 (eight) hours as needed for Nausea. Active pentoxifylline (TRENTAL) Take 400 mg 0 400 mg CR tablet by mouth 3 (three) times daily with meals. Active IRON SUCROSE COMPLEX Inject 0 (VENOFER IV) intravenously . Active diltiazem (CARDIZEM CD) Take 360 mg 0 360 MG 24 hr by mouth capsuleIndications: daily. hypertension, raynauds Active insulin detemir U-100 Inject 20 0 (LEVEMIR) 100 unit/mL Units injection subcutaneousl y nightly. Active insulin aspart U-100 Inject 0 (NOVOLOG) 100 unit/mL subcutaneousl InPn y 2 (two) times daily before meals As sliding scale . Active simvastatin (ZOCOR) 40 MG Take 40 mg by 0 tablet mouth nightly. Active Missing or Non-Formulary 400 mg daily 0 Medication PENTOXIFTLLIN E . Active Missing or Non-Formulary 1 tablet 3 0 Medication (three) times daily IMURAN . Active folic acid (FOLVITE) 1 MG Take 1 mg by 0 tablet mouth daily. Active cyanocobalamin (VITAMIN Inject 1,000 0 B-12) 1,000 mcg/mL mcg injection intramuscular ly every 30 (thirty) days. 01/05/2018 Discontinued mycophenolate (CELLCEPT) Take by mouth 0 500 mg tablet 2 (two) times daily. 01/05/2018 Discontinued isosorbide mononitrate Take 30 mg by 0 (IMDUR) 30 MG 24 hr mouth daily. tablet 01/05/2018 Discontinued rosuvastatin (CRESTOR) 40 Take 40 mg by 0 MG tablet mouth daily. 01/05/2018 Discontinued insulin lispro (HUMALOG) Inject 0 100 unit/mL injection subcutaneousl y 3 (three) times daily before meals. 01/05/2018 Discontinued linaclotide 145 mcg Cap Take 145 mcg 0 by mouth daily. 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 Overview: UPDATED BY ICD10 SNOMED/IMO UPDATES Encounters Care Team Description Date Type Specialty Hector Venegas MD Ahmed, Shamoon, MD Sepsis, due to unspecified organism (HCC) (Primary Dx); Neck pain; Cellulitis, unspecified cellulitis site; Tachycardia; Fever, unspecified fever cause; Acute intractable headache, unspecified headache type 02/17/2018 Emergency General Internal Medicine Reji Latham MD Peripheral demyelinating neuropathy (Primary Dx) 01/09/2018 Orders Only Lab Danny Valladares Jr., MD Stanietzky, Nir, MD Peripheral demyelinating neuropathy 01/09/2018 Hospital Radiology Encounter IrrDanny Jr., MD Peripheral demyelinating neuropathy (Primary Dx) 01/03/2018 Outside Orders Central Scheduling after 05/30/2017 Social History Date Tobacco Use Types Packs/Day Years Used Never Smoker Alcohol Use Drinks/Week oz/Week Comments Yes 1 Glasses of 0.6 wine Sex Assigned at Date Recorded Not on file Industry Job Start Date Occupation Not on file Not on file Not on file Travel End Travel History Travel Start No recent travel history available. Last Filed Vital Signs Time Taken Vital Sign Reading 02/17/2018 5:10 PM CDT Blood Pressure 140/65 02/17/2018 5:10 PM CDT Pulse 100 02/17/2018 5:10 PM CDT Temperature 38 C (100.4 F) 02/17/2018 4:27 PM CDT Respiratory Rate 18 02/17/2018 5:10 PM CDT Oxygen Saturation 90% - Inhaled Oxygen - Concentration 02/17/2018 9:15 AM CDT Weight 59.4 kg (131 lb) 02/17/2018 9:15 AM CDT Height 160 cm (5' 3") 02/17/2018 9:15 AM CDT Body Mass Index 23.21 Plan of Treatment Not on file Implants Device Identifier Shelf Expiration Date Model / Serial / Lot Implanted Type Area Manufactur er / / Wire K 2 Trcr 0.062 Ss Fracture/F Left: Wrist BIOMET:TRA - [id number] ixation LEONARD Implanted: Qty: 3 on 06/28/2016 by Lui Nevarez IV, MD 06/28/2016111.631 / / [id number] Plt L 6h Va-Lcp 2 Column 631 Fracture/F Left: Wrist SYNTHES:SY - [id number] ixation NTHES [place] Implanted: Qty: 1 on 06/28/2016 by Lui Nevarez IV, MD ..120 / / Scr Lck Va 2.4x20 Ns 120 - Fracture/F Left: Wrist SYNTHES:SY [id number] ixation [employer]THES [place] Implanted: Qty: 2 on 06/28/2016 by Lui Nevarez IV, MD .210.124 / / Scr Lck Va 2.4x24 Ns 124 - Fracture/F Left: Wrist SYNTHES:SY [id number] ixation [employer]THES [place] Implanted: Qty: 1 on 06/28/2016 by Lui Nevarez IV, MD .210.118 / / Scr Lck Va 2.4x18 Ns 118 - Fracture/F Left: Wrist SYNTHES:SY [id number] ixation [employer]THES [place] Implanted: Qty: 2 on 06/28/2016 by Lui Nevarez IV, MD 201.762 / / Scr Crtx Lcp St T8 2.4x12 Ns Fracture/F Left: Wrist SYNTHES:SY 201.762 - [id number] ixation NTHES [place] Implanted: Qty: 2 on 06/28/2016 by Lui Nevarez IV, MD 201.764 / / Scr Crtx Lcp St T8 2.4x14 Ns Fracture/F Left: Wrist SYNTHES:SY 201.764 - [id number] ixation NTHES [place] Implanted: Qty: 2 on 06/28/2016 by Lui Nevarez IV, MD 11/08/2016 [id number] / [id number] / [id number] Allograft Left: Wrist Implanted: Qty: 1 on 06/28/2016 by Lui Nevarez IV, MD Procedures Comments Procedure Name Priority Date/Time Associated Diagnosis BLOOD CULTURE STAT 02/17/2018 3:05 PM CDT CRITICAL CARE Routine 02/17/2018 12:05 PM CDT POCT-LACTIC ACID, VENOUS Routine 02/17/2018 10:10 AM CDT XR CHEST 1 VIEW STAT 02/17/2018 PORTABLE/BEDSIDE 10:09 AM CDT CBC W/PLT COUNT & AUTO STAT 02/17/2018 DIFFERENTIAL 10:06 AM CDT CBC W/PLT COUNT & AUTO STAT 02/17/2018 DIFFERENTIAL 10:06 AM CDT TROPONIN I STAT 02/17/2018 10:06 AM CDT PHOSPHORUS STAT 02/17/2018 10:06 AM CDT MAGNESIUM STAT 02/17/2018 10:06 AM CDT HEPATIC FUNCTION PANEL STAT 02/17/2018 10:06 AM CDT BASIC METABOLIC PANEL (7) STAT 02/17/2018 10:06 AM CDT BLOOD CULTURE STAT 02/17/2018 10:06 AM CDT BLOOD CULTURE STAT 02/17/2018 10:06 AM CDT IR CV ACCESS FLUORO Routine 01/09/2018 Peripheral demyelinating 3:27 PM CDT neuropathy PLATELET COUNT STAT 01/09/2018 Peripheral demyelinating 10:48 AM CDT neuropathy PT/APTT STAT 01/09/2018 Peripheral demyelinating 10:48 AM CDT neuropathy after 05/30/2017 Results * Blood culture (02/17/2018 3:05 PM CDT) Only the most recent of 3 results within the time period is included. Result No growth in 5 days [facility] Specimen Blood - Central Venous Line Performing Organization Address City/State/Zipcode Phone Number [facility] [address] [place] [address] * CRITICAL CARE (02/17/2018 12:05 PM CDT) Narrative Performed At Hector Venegas MD 02/17/2018 12:05 PM Critical Care Performed by: HECTOR VENEGAS Authorized by: HECTOR VENEGAS Total critical care time: 35 minutes Critical care time was exclusive of separately billable procedures and treating other patients. Critical care was necessary to treat or prevent imminent or life-threatening deterioration of the following conditions: sepsis. Critical care was time spent personally by me on the following activities: discussions with consultants, discussions with primary provider, examination of patient, obtaining history from patient or surrogate, ordering and performing treatments and interventions, evaluation of patient's response to treatment, ordering and review of laboratory studies, ordering and review of radiographic studies, pulse oximetry and re-evaluation of patient's condition. * POC-Lactic Acid, Venous (02/17/2018 10:10 AM CDT) POC-Lactic Acid, Venous 0.9Comment: TESTED AT [facility] 0.9 - 1.7 mmol/L [address] Specimen Blood Performing Organization Address City/State/Zipcode Phone Number [address] * XR chest 1 view portable / bedside (02/17/2018 10:09 AM CDT) Narrative Performed At FINAL REPORT [facility] Chest one view compared to June 29, 2016 Discussion: Right chest Port-A-Cath extends to the lower SVC level. Lungs clear. Heart size normal. No effusion or pneumothorax. Signed: Carolyn Gifford MD Report Verified Date/Time:02/17/2018 11:22:49 Reading Location: [facility] Radiology Reading Room Procedure Note Interface, External Ris In - 02/17/2018 11:25 AM CDT FINAL REPORT Chest one view compared to June 29, 2016 Discussion: Right chest Port-A-Cath extends to the lower SVC level. Lungs clear. Heart size normal. No effusion or pneumothorax. Signed: Carolyn Gifford MD Report Verified Date/Time: 02/17/2018 11:22:49 Reading Location: [facility] Rad[facility] Reading Room Performing Organization Address City/State/Zipcode Phone Number [facility] * CBC with platelet count + automated diff (02/17/2018 10:06 AM CDT) WBC 6.7 3.5 - 10.5 K/L [facility] RBC 2.76 (L) 3.93 - 5.22 M/L [facility] Hemoglobin 8.9 (L) 11.2 - 15.7 GM/DL [facility] Hematocrit 25.2 (L) 34.1 - 44.9 % [facility] MCV 91.3 79.4 - 94.8 fL [facility] MCH 32.2 25.6 - 32.2 pg [facility] MCHC 35.3 32.2 - 35.5 GM/DL [facility] RDW 16.6 (H) 11.7 - 14.4 % [facility] Platelets 156 150 - 450 K/CU MM [facility] MPV 10.3 9.4 - 12.3 fL [facility] nRBC 0 0 - 0 /100 WBC [facility] % Neutros 65 % [facility] % Lymphs 20 % [facility] % Monos 13 % [facility] % Eos 1 % [facility] % Baso 0 % [facility] # Neutros 4.36 1.56 - 6.13 K/L [facility] # Lymphs 1.35 1.18 - 3.74 K/L [facility] # Monos 0.88 (H) 0.24 - 0.36 K/L [facility] # Eos 0.07 0.04 - 0.36 K/L [facility] # Baso 0.02 0.01 - 0.08 K/L [facility] Immature 1 0 - 1 % [facility] Granulocytes-Relative [facility] Specimen Blood Performing Organization Address City/[facility]/[place] [address] [facility] * Troponin I (02/17/2018 10:06 AM CDT) Troponin I <0.01 0.00 - 0.03 ng/mL [facility] Specimen Blood Narrative Performed At Troponin I (TnI) levels must be interpreted in the context of the presenting [facility] symptoms and the clinical findings. Elevated TnI levels indicate myocardial [facility] damage, but are not specific for ischemic heart disease. Elevated TnI levels are seen in patients with other cardiac conditions (including myocarditis and congestive heart failure), and slight TnI elevations occur in patients with other conditions, including sepsis, renal failure, acidosis, acute neurological disease, and persistent tachyarrhythmia. Performing Organization Address City/[facility]/[place] [address] [phone] [place] [address] * Phosphorus (02/17/2018 10:06 AM CDT) Phosphorus 1.8 (L) 2.3 - 4.7 mg/dL [facility] Specimen Blood Performing Organization Address City/[facility]/[place] [address] [facility] * Magnesium (02/17/2018 10:06 AM CDT) Magnesium 1.6 1.6 - 2.6 mg/dL [facility] Specimen Blood Performing Organization Address City/[facility]/Zipcode Phone Number [facility] [address] [place] [address] [facility] * Hepatic function panel (02/17/2018 10:06 AM CDT) Protein, Total 9.1 (H) 6.0 - 8.3 gm/dL [facility] Albumin 3.6 3.5 - 5.0 g/dL [facility] Total Bilirubin 1.1 0.2 - 1.2 mg/dL [facility] Bilirubin, Direct 0.4 0.1 - 0.5 mg/dL [facility] Alkaline Phosphatase 78 40 - 150 U/L [facility] AST 13 5 - 34 U/L [facility] ALT 6 6 - 55 U/L [facility] Specimen Blood Performing Organization Address City/State/Zipcode Phone Number [facility] [address] [place] [address] [facility] * Basic Metabolic Panel (02/17/2018 10:06 AM CDT) Sodium 131 (L) 136 - 145 meq/L [facility] Potassium 4.4 3.5 - 5.1 meq/L [facility] Chloride 96 (L) 98 - 107 meq/L [facility] CO2 28 22 - 29 meq/L [facility] BUN 12 7 - 21 mg/dL [facility] Creatinine 0.96 0.57 - 1.25 mg/dL [facility] Glucose 269 (H) 70 - 105 mg/dL [facility] Calcium 9.8 8.4 - 10.2 mg/dL [facility] EGFR 60Comment: ESTIMATED GFR IS mL/min/1.[address] [facility] NOT ACCURATE CREATININE [facility] CLEARANCE IN PREDICTING GLOMERULAR FILTRATION RATE. ESTIMATED GFR IS NOT APPLICABLE FOR DIALYSIS PATIENTS. Specimen Blood Performing Organization Address City/State/Zipcode Phone Number [facility] [address] [place] [address] [facility] * IR CV Access Fluoro (01/09/2018 3:27 PM CDT) Narrative Performed At FINAL REPORT [facility] Chest dagoberto cath insertion: Pertinent clinical information: G 62.89 Modality: Sonography and fluoroscopy Conscious Sedation: Versed 1 mg and fentanyl 50 mcg intravenously During the procedure with conscious sedation, the patient was monitored continuously with pulse oximetry and electrocardiography by the attending physician and registered nurse. Patient Physician face to face intraservice time: 30 minutes Antibiotics: Vancomycin 1 g intravenously Fluoro time in minutes and number of images: 3.6 minutes. Total dose 102 mGy. Four images Anesthesia:Two percent Lidocaine injected subcutaneously at the insertion site and tunnel. Approach: Right internal jugular vein For maximum sterile barrier protection a mask, cap, sterile gloves, sterile drape, sterile gown, and a cutaneous antiseptic was utilized. Technique:After informed written consent was obtained, the patient was prepped and draped in the usual sterile manner.Access was obtained using sonographic guidance. Hard copy images of the vein were submitted for interpretation.Ultrasound was used to document patency, compressibility and decrease unnecessary punctures.The right jugular vein was catheterized.A guide wirewas advanced centrally.A 20 cm 7 [place] Passport catheter was advanced with its distal tip terminating at the cavoatrial junction.The catheter was flushed and aspirated easily following placement.A subcutaneous pocket was created in the right anterior chest wall by blunt dissection.The pocket was lavaged with an antimicrobial solution.The pocket was then closed using a running subcuticular 3.0 Vicryl suture.The port was then accessed following closure and flushed with a saline solution.Vital signs were monitored throughout the procedure by a nurse and the radiologist, and remained stable.The patient tolerated the procedure well and left the department in the same condition. Results:Spot radiographs of the chest and upper arm demonstrate the new chest port catheter to lie in the expected position with its tip overlying the cavoatrial junction. Impression: Successful, uncomplicated placement of a right chest dagoberto cath. This catheter is a power port which is rated for power injections if needed. Signed: Lizzy Harvey MD Report Verified Date/Time:01/09/2018 16:18:09 Reading Location: [place] [id number] Angio Body Reading Room Procedure Note Interface, External Ris In - 01/09/2018 4:20 PM CDT FINAL REPORT Chest dagoberto cath insertion: Pertinent clinical information: G 62.89 Modality: Sonography and fluoroscopy Conscious Sedation: Versed 1 mg and fentanyl 50 mcg intravenously During the procedure with conscious sedation, the patient was monitored continuously with pulse oximetry and electrocardiography by the attending physician and registered nurse. Patient Physician face to face intraservice time: 30 minutes Antibiotics: Vancomycin 1 g intravenously Fluoro time in minutes and number of images: 3.6 minutes. Total dose 102 mGy. Four images Anesthesia: Two percent Lidocaine injected subcutaneously at the insertion site and tunnel. Approach: Right internal jugular vein For maximum sterile barrier protection a mask, cap, sterile gloves, sterile drape, sterile gown, and a cutaneous antiseptic was utilized. Technique: After informed written consent was obtained, the patient was prepped and draped in the usual sterile manner. Access was obtained using sonographic guidance. Hard copy images of the vein were submitted for interpretation. Ultrasound was used to document patency, compressibility and decrease unnecessary punctures. The right jugular vein was catheterized. A guide wire was advanced centrally. A 20 cm 7 [place] Passport catheter was advanced with its distal tip terminating at the cavoatrial junction. The catheter was flushed and aspirated easily following placement. A subcutaneous pocket was created in the right anterior chest wall by blunt dissection. The pocket was lavaged with an antimicrobial solution.The pocket was then closed using a running subcuticular 3.0 Vicryl suture. The port was then accessed following closure and flushed with a saline solution. Vital signs were monitored throughout the procedure by a nurse and the radiologist, and remained stable. The patient tolerated the procedure well and left the department in the same condition. Results: Spot radiographs of the chest and upper arm demonstrate the new chest port catheter to lie in the expected position with its tip overlying the cavoatrial junction. Impression: Successful, uncomplicated placement of a right chest dagoberto cath. This catheter is a power port which is rated for power injections if needed. Signed: Lizzy Harvey MD Report Verified Date/Time: 01/09/2018 16:18:09 Reading Location: [facility] B1 [id number] Angio Body Reading Room Performing Organization Address City/State/Zipcode Phone Number [facility] * PT/aPTT (01/09/2018 10:48 AM CDT) Protime 13.4 11.7 - 14.7 seconds [facility] INR 1.0 <=5.9 [facility] PTT 27.2 22.5 - 36.0 seconds [facility] Specimen Blood Narrative Performed At RECOMMENDED COUMADIN/WARFARIN INR THERAPY RANGES [facility] STANDARD DOSE: 2.0 - 3.0 Includes: PROPHYLAXIS for venous thrombosis, [facility] systemic embolization; TREATMENT for venous thrombosis and/or pulmonary embolus. HIGH RISK: Target INR is 2.5-3.5 for patients with mechanical heart valves. Performing Organization Address City/[facility]/Zipcode Phone Number [facility] [address] [place], [place] [id number] [facility] * Platelet count (01/09/2018 10:48 AM CDT) Platelets 238 150 - 450 K/CU MM [facility] Specimen Blood Performing Organization Address City/[facility]/Zipcode Phone Number [facility] [address] [place] [address] [facility] after 05/30/2017 Insurance Payer Benefit Subscriber ID Type Phone Address Plan / Group [employer] - MEDICARE [employer] CARE [employer] xxxxxxxx [phone] [address] [place] [address] HMO POS PPO Advance Directives For more information, please contact: [address] [address] Date Inactivated Comments Code Status Date Activated 02/17/2018 10:01 PM Full Code 02/17/2018 9:52 AM This code status was determined by: Patient 07/06/2016 1:18 PM Full Code 06/29/2016 7:49 PM This code status was determined by: Patient 06/28/2016 4:33 PM Full Code 06/28/2016 7:01 AM This code status was determined by: Patient 05/20/2015 3:34 PM Full Code 05/20/2015 6:08 AM This code status was determined by: Patient
--- OUTSIDE RECORDS SUMMARY | 2018-05-31 21:47 | XMS REPORT | Encounter Summary ---
Author Organization Unknown Address [address] [place] [address] Phone [phone] Reason for Visit Medical Complaint Instructions 1. Influenza-like symptoms rapid flu (A+B) 2. Vomiting nausea and vomiting: care instructions 3. Gastroparesis syndrome gastroparesis: care instructions call back patient follow up phone call 4. Colostomy present Discussion Note Pt is in NAD; Verbalizes understanding of all instructions with no questions at this time. Plan of Care Patient Instructions Based on the nature of your symptoms I recommend you report to the nearest ER immediately for further evaluation and recommendations. Reminders Provider Appointments None recorded. Lab Rapid Flu (A+B) 06/02/2017 [facility] Referral None recorded. Procedures None recorded. Surgeries None recorded. Imaging None recorded. Medications Name Start Date acyclovir 400 mg tablet TAKE ONE (1) TABLET(S) BY MOUTH TWICE A DAY. alprazolam 0.5 mg tablet TAKE ONE (1) TABLET(S) BY MOUTH TWICE A DAY NEEDED. azathioprine 50 mg tablet TAKE THREE (3) TABLET(S) BY MOUTH ONCE A DAY. Cartia XT 180 mg capsule,extended release TAKE TWO (2) CAPSULE(S) BY MOUTH EVERY DAY. clopidogrel 75 mg tablet TAKE ONE (1) TABLET(S) BY MOUTH DAILY. cyanocobalamin (vit B-12) 1,000 mcg/mL injection solution INJECT ONE (1) CC(S) SUBCUTANEOUSLY DAILY FOR 7 DAYS, THEN 1 CC WEEKLY FOR 4 WEEKS, THEN 1 CC ONCE A MONTH. cyclobenzaprine 5 mg tablet TAKE ONE (1) TABLET(S) BY MOUTH NIGHTLY NEEDED. epinastine 0.05 % eye drops INSTILL ONE (1) DROP IN AFFECTED EYE TWICE A DAY. erythromycin 250 mg tablet TAKE ONE (1) TABLET(S) BY MOUTH THREE TIMES A DAY. fenofibrate nanocrystallized 145 mg tablet TAKE ONE (1) TABLET(S) BY MOUTH DAILY. fluconazole 150 mg tablet TAKE ONE (1) TABLET(S) BY MOUTH EVERY 3RD DAY NEEDED FOR 10 DAYS. folic acid 1 mg tablet TAKE ONE (1) TABLET(S) BY MOUTH DAILY. hydrocodone 10 mg-acetaminophen 325 mg tablet TAKE ONE (1) TABLET(S) BY MOUTH EVERY SIX HOURS NEEDED FOR PAIN (MAX 4 TABLETS PER DAY). Levemir FlexTouch 100 unit/mL (3 mL) subcutaneous insulin pen INJECT 30 UNITS SUBCUTANEOUSLY ONCE DAILY DIRECTED FOR 90 DAYS. lidocaine 5 % topical ointment APPLY TO AFFECTED AREA AT BEDTIME DIRECTED FOR 30 DAYS. Linzess 290 mcg capsule TAKE ONE (1) CAPSULE(S) BY MOUTH EVERY MORNING BEFORE MEALS. lisinopril 20 mg tablet TAKE ONE (1) TABLET(S) BY MOUTH EVERY MORNING AND TWO (2) TABLETS EVERY NIGHT AT BEDTIME. Lyrica 150 mg capsule TAKE ONE (1) CAPSULE(S) BY MOUTH TWICE A DAY. metoclopramide 10 mg tablet TAKE ONE (1) TABLET(S) BY MOUTH BEFORE MEALS (THREE TIMES DAILY) AND AT BEDTIME. montelukast 10 mg tablet TAKE ONE (1) TABLET(S) BY MOUTH ONCE A DAY IN THE EVENING. morphine ER 15 mg tablet,extended release TAKE ONE (1) TABLET(S) BY MOUTH EVERY EIGHT HOURS DIRECTED FOR CHRONIC PAIN. nifedipine ER 30 mg tablet,extended release 24 hr TAKE ONE (1) TABLET(S) BY MOUTH DAILY. nitroglycerin 0.[address] ONE (1) TABLET UNDER THE TONGUE EVERY 5 MINUTES FOR UP TO 3 DOSES NEEDED FOR CHEST PAIN. CALL 911 IF PAIN PERSISTS. nystatin 100,000 unit/gram topical powder APPLY TO AFFECTED AREA TWICE DAILY. ondansetron HCl 8 mg tablet TAKE ONE (1) TABLET(S) BY MOUTH THREE TIMES A DAY NEEDED. pantoprazole 40 mg tablet,delayed release TAKE ONE (1) TABLET(S) BY MOUTH EVERY DAY. pentoxifylline ER 400 mg tablet,extended release TAKE ONE (1) TABLET(S) BY MOUTH TWICE A DAY WITH MEALS. prednisone 5 mg tablet TAKE ONE (1) TABLET(S) BY MOUTH DAILY WITH FOOD OR MILK. YOU CAN INCREASE THE DOSE TO 10MG DAILY IF YOU HAVE JOINT PAIN OR SWELLING. promethazine 25 mg tablet TAKE ONE (1) TO TWO (2) TABLET(S) BY MOUTH EVERY EIGHT HOURS NEEDED. simvastatin sucralfate 1 gram tablet TAKE ONE (1) TABLET(S) BY MOUTH FOUR TIMES A DAY FOR 10 DAYS. temazepam 30 mg capsule TAKE ONE (1) CAPSULE(S) BY MOUTH AT BEDTIME FOR SLEEP. tobramycin 0.3 %-dexamethasone 0.1 % eye drops,suspension INSTILL TWO (2) DROPS INTO THE AFFECTED EYE(S) TWICE A DAY. Medications Administered None recorded. Vitals Height Weight BMI Blood Pressure 5 ft 3 in 125 lbs 22.1 kg/m2 124/64 mm[Hg] Lab Results Date Name Specimen Result Interpretation Description Value Range Status Address Rapid Flu (A+B) Influenza a negative [facility]: [address] [place] [address] Influenza B negative [facility]: [address] [place] [address] Allergies Code Code System Name Reaction Severity Status Onset NKDA Problems Name Status Onset Date Source Acute Suppurative Otitis Media without Spontaneous Rupture of Ear Drum Active Encounter Acute Sinusitis Active Encounter Acute Bronchitis Active Encounter Influenza with Non-respiratory Manifestation Active Encounter Skin Lesion Active Encounter Procedures Date Name Performed by Lumbar Artific Disc Information not available Vaccine List Vaccine Type Tdap 05/30/2009 Social History Smoking Status Never Smoker Past Encounters 06/02/2017 Influenza-like Symptoms; Vomiting; Gastroparesis Syndrome; Colostomy Present Thu Grimaldo, [employer]IST-[employer]: [address] [place] [id number], Ph. History of Present Illness Iiqmlt-[id number]-Banqgqbk / Abdominal Pain Reported By: Patient HPI: Quality: worsening, frequent. Severity: moderate. Duration: present for < 1 week, symptoms last for how long?. Onset/Timing: worse with meals, gradual onset, 4-10 times a day. Context: no one else with similar symptoms, no recent camping, no recent picnic, no possible food sources, no recent travel; Pt has h/o gastroparesis, she is s/p colon resection and colostomy bag placement (07/2016). Pt reports her appetite is completely suppressed and she has vomited x 10 episodes, per pt vomit looks like "coffee grounds." Per pt, she has noticed slower motility through her colostomy bag and she is hardly passing gas. Alleviating factors: better with fasting. Aggravating factors: eating. Associated Symptoms: no abdominal pain, no excess gas, no rash, no joint pain, no weight loss, no heartburn, no blood in stool, no mucus in stool, no black or tarry stools, no weakness, no nutrient deficiency, no headache, no feeling of fullness/mass in throat, no muscle aches, no bitter taste in the mouth, no difficulty swallowing (dysphagia), fever/chills, vomiting; body aches Bemimyl-Homfr-Syp Reported By: Patient HPI: Quality: symptoms worse during the day. Duration: 3 days. Severity: subjective temperature. Context: no ill contacts, no tick/insect bites, no recent travel, no new medications. Associated Symptoms: no headache, no muscle aches, no rash, no lethargy, fever/chills, cough, nasal passage blockage (stuffiness); body aches and vomiting. Modifying Factors nothing gives relief Review of Systems:ROS as noted in the HPI Review of Systems Basic Reported By: Patient Physical Exam Adult Basic, Adult Female Complete, Adult Male Complete Reported By: Patient Constitutional: General Appearance: healthy-appearing, well-nourished, well-developed. Level of Distress: NAD. Ambulation: ambulating normally Psychiatric: Mental Status: active and alert. Orientation: to time, to place, to person Eyes: Lids and Conjunctivae: non-injected, no pallor Wwn-Ahwk-Zdpdt-Throat: Ears: no lesions on external ear, no outer ear tenderness, EACs clear, TMs clear. Hearing: no hearing loss. Nose: no lesions on external nose, nares patent, no septal deviation, nasal passages clear, no sinus tenderness, no nasal discharge. Lips, Teeth, and Gums: no mouth or lip ulcers, no bleeding gums, normal dentition. Oropharynx: moist mucous membranes, no erythema, no exudates, tonsils not enlarged Neck: Neck: supple. Lymph Nodes: no cervical LAD Lungs: Respiratory effort: no dyspnea, no tachypnea, no use of accessory muscles, no intercostal retractions. Auscultation: breath sounds normal Cardiovascular: Heart Auscultation: RRR, no murmurs Neurologic: Gait and Station: normal gait, normal station Abdomen: Bowel Sounds: normal. Inspection and Palpation: soft, non-distended, no tenderness, no guarding, no rebound tenderness, no masses, no CVA tenderness; LLQ colostomy bag, stoma pink and moist. No stool observed. Liver: non-tender, no hepatomegaly. Spleen: non-tender, no splenomegaly. Hernia: none palpable
--- OUTSIDE RECORDS SUMMARY | 2018-05-31 21:47 | XMS REPORT | Continuity of Care Document ---
Author Author [facility] Interface Address Unknown Phone Unavailable Problems Problem Status Onset Date Classification Date Reported Comments Source Influenza-like symptoms 06/02/2017 Diagnosis 06/02/2017 [facility] Vomiting 06/02/2017 Diagnosis 06/02/2017 [facility] Gastroparesis syndrome 06/02/2017 Diagnosis 06/02/2017 [facility] Colostomy present 06/02/2017 Diagnosis 06/02/2017 [facility] Esophageal stricture Active 12/26/2015 Problem 02/23/2018 [facility] Acute Suppurative Otitis Media without Spontaneous Rupture of Ear Drum Problem 06/02/2017 [facility] Acute Sinusitis Problem 06/02/2017 [facility] Acute Bronchitis Problem 06/02/2017 [facility] Influenza with Non-respiratory Manifestation Problem 06/02/2017 [facility] Skin Lesion Problem 06/02/2017 [facility] Anemia Active Problem 02/23/2018 [facility] Cellulitis, neck Active Problem 02/23/2018 [facility] Hyperglycemia Active Problem 02/23/2018 [facility] Thrombophlebitis Active Problem 02/23/2018 [facility] Medications Medication Details Route Status Patient Instructions Ordering Provider Order Date Source Budesonide/Formoterol Fumarate (Symbicort 160-4.5 Mcg Inhaler) 10.2 Gm Hfa.aer.ad, As Needed as needed for Shortness Of Breath Active 09/28/2017 [facility] Clopidogrel Bisulfate (Plavix) 75 Mg Tablet, 75 Mg Oral Daily Active 09/28/2017 [facility] Dexlansoprazole (Dexilant) 60 Mg Cap., 60 Mg Oral Daily Active 09/28/2017 [facility] Duloxetine Hcl (Cymbalta) 60 Mg Capsule., 60 Mg Oral Daily Active 09/28/2017 [facility] Hydroco/Apap , 10-325 Mg Every 4-6 Prn Active 09/28/2017 [facility] Insulin Aspart (Novolog) 100 Unit/1 Ml Cartridge, 10 Unit Sub-Q Three Times Daily With Meals Active 09/28/2017 [facility] Insulin Glargine (Lantus 3ML Pen) 100 Units/1 Ml Inj, 30 Units Oral Bedtime Active 09/28/2017 [facility] Linzess , 145 Mg Oral Bedtime Active 09/28/2017 [facility] Mycophenolate Mofetil (Cellcept) 500 Mg Tablet, 1500 Mg Oral Twice A Day Active 09/28/2017 [facility] Pregabalin (Lyrica) 150 Mg Capsule, 150 Mg Oral Twice A Day Active 09/28/2017 [facility] Ranolazine (Ranexa) 500 Mg Tabsr, 500 Mg Oral Twice A Day Active 09/28/2017 [facility] Cyclobenzaprine Hcl (Flexeril) 5 Mg Tablet, 10 Mg Oral Bedtime Active 12/26/2015 [facility] Fenofibrate Nanocrystallized (Fenofibrate) 145 Mg Tablet, 145 Mg Oral Daily Active 12/26/2015 [facility] Insulin Lispro (Humalog) 100 Unit/1 Ml Cartridge, Subcutaneously As Needed Active 12/26/2015 [facility] Insuln Asp Prt/Insulin Aspart (Novolog Mix 70-30 Flexpen Syrn) 3 Ml Insuln.pen, 60 Unit Sub-Q Twice A Day Active 12/26/2015 [facility] Isosorbide Mononitrate 30 Mg Tab.er.24h, 30 Mg Oral Daily Active 12/26/2015 [facility] Metoprolol Succinate 50 Mg Tab.er.24h, 100 Mg Oral Twice A Day Active 12/26/2015 [facility] Mycophenolate Mofetil (Cellcept) 500 Mg Tablet, 500 Mg Oral Bedtime Active 12/26/2015 [facility] Pantoprazole Sodium (Protonix) 40 Mg Tablet.dr, 40 Mg Oral Twice A Day Active 12/26/2015 [facility] Colchicine (Colcrys) 0.6 Mg Tablet, Oral Twice A Day Active 06/21/2015 [facility] Pregabalin (Lyrica) 75 Mg Cap, 150 Mg Oral Daily Active 06/21/2015 [facility] Carisoprodol (Soma) 350 Mg Tablet, 350 Mg Oral As Needed Active 06/15/2015 [facility] Isosorbide Dinitrate 30 Mg Tablet, Active 03/31/2013 [facility] Carbamazepine 200 Mg Tablet, 200 Mg Oral Twice A Day Active 05/09/2012 [facility] Doxycycline Hyclate 100 Mg Capsule, 100 Mg Oral Twice A Day Active 05/09/2012 [facility] Metformin Hcl (Glucophage) 500 Mg Tablet, 500 Mg Oral Twice A Day Active 05/09/2012 [facility] Acyclovir 400 MG Oral Tablet acyclovir 400 mg tablet TAKE ONE (1) TABLET(S) BY MOUTH TWICE A DAY. Active [facility] Alprazolam 0.5 MG Oral Tablet alprazolam 0.5 mg tablet TAKE ONE (1) TABLET(S) BY MOUTH TWICE A DAY NEEDED. Active [facility] Azathioprine 50 MG Oral Tablet azathioprine 50 mg tablet TAKE THREE (3) TABLET(S) BY MOUTH ONCE A DAY. Active [facility] 24 HR Diltiazem Hydrochloride 180 MG Extended Release Oral Capsule [Cartia] Cartia XT 180 mg capsule,extended release TAKE TWO (2) CAPSULE(S) BY MOUTH EVERY DAY. Active [facility] clopidogrel 75 MG Oral Tablet clopidogrel 75 mg tablet TAKE ONE (1) TABLET(S) BY MOUTH DAILY. Active [facility] Vitamin B 12 1 MG/ML Injectable Solution cyanocobalamin (vit B-12) 1,000 mcg/mL injection solution INJECT ONE (1) CC(S) SUBCUTANEOUSLY DAILY FOR 7 DAYS, THEN 1 CC WEEKLY FOR 4 WEEKS, THEN 1 CC ONCE A MONTH. Active [facility] Cyclobenzaprine hydrochloride 5 MG Oral Tablet cyclobenzaprine 5 mg tablet TAKE ONE (1) TABLET(S) BY MOUTH NIGHTLY NEEDED. Active [facility] epinastine hydrochloride 0.5 MG/ML Ophthalmic Solution epinastine 0.05 % eye drops INSTILL ONE (1) DROP IN AFFECTED EYE TWICE A DAY. Active [facility] Erythromycin 250 MG Oral Tablet erythromycin 250 mg tablet TAKE ONE (1) TABLET(S) BY MOUTH THREE TIMES A DAY. Active [facility] Fenofibrate 145 MG Oral Tablet fenofibrate nanocrystallized 145 mg tablet TAKE ONE (1) TABLET(S) BY MOUTH DAILY. Active [facility] Fluconazole 150 MG Oral Tablet fluconazole 150 mg tablet TAKE ONE (1) TABLET(S) BY MOUTH EVERY 3RD DAY NEEDED FOR 10 DAYS. Active [facility] Folic Acid 1 MG Oral Tablet folic acid 1 mg tablet TAKE ONE (1) TABLET(S) BY MOUTH DAILY. Active [facility] Acetaminophen 325 MG / Hydrocodone Bitartrate 10 MG Oral Tablet hydrocodone 10 mg-acetaminophen 325 mg tablet TAKE ONE (1) TABLET(S) BY MOUTH EVERY SIX HOURS NEEDED FOR PAIN (MAX 4 TABLETS PER DAY). Active [facility] 3 ML insulin detemir 100 UNT/ML Pen Injector [Levemir] Levemir FlexTouch 100 unit/mL (3 mL) subcutaneous insulin pen INJECT 30 UNITS SUBCUTANEOUSLY ONCE DAILY DIRECTED FOR 90 DAYS. Active [facility] Lidocaine 0.05 MG/MG Topical Ointment lidocaine 5 % topical ointment APPLY TO AFFECTED AREA AT BEDTIME DIRECTED FOR 30 DAYS. Active [facility] linaclotide 0.29 MG Oral Capsule [Linzess] Linzess 290 mcg capsule TAKE ONE (1) CAPSULE(S) BY MOUTH EVERY MORNING BEFORE MEALS. Active [facility] Lisinopril 20 MG Oral Tablet lisinopril 20 mg tablet TAKE ONE (1) TABLET(S) BY MOUTH EVERY MORNING AND TWO (2) TABLETS EVERY NIGHT AT BEDTIME. Active [facility] pregabalin 150 MG Oral Capsule [Lyrica] Lyrica 150 mg capsule TAKE ONE (1) CAPSULE(S) BY MOUTH TWICE A DAY. Active [facility] Metoclopramide 10 MG Oral Tablet metoclopramide 10 mg tablet TAKE ONE (1) TABLET(S) BY MOUTH BEFORE MEALS (THREE TIMES DAILY) AND AT BEDTIME. Active [facility] montelukast 10 MG Oral Tablet montelukast 10 mg tablet TAKE ONE (1) TABLET(S) BY MOUTH ONCE A DAY IN THE EVENING. Active [facility] Morphine Sulfate 15 MG Extended Release Oral Tablet morphine ER 15 mg tablet,extended release TAKE ONE (1) TABLET(S) BY MOUTH EVERY EIGHT HOURS DIRECTED FOR CHRONIC PAIN. Active [facility] Osmotic 24 HR Nifedipine 30 MG Extended Release Oral Tablet nifedipine ER 30 mg tablet,extended release 24 hr TAKE ONE (1) TABLET(S) BY MOUTH DAILY. Active [facility] Nitroglycerin 0.4 MG Sublingual Tablet nitroglycerin 0.[address] ONE (1) TABLET UNDER THE TONGUE EVERY 5 MINUTES FOR UP TO 3 DOSES NEEDED FOR CHEST PAIN. CALL 911 IF PAIN PERSISTS. Active [facility] Nystatin 100 UNT/MG Topical Powder nystatin 100,000 unit/gram topical powder APPLY TO AFFECTED AREA TWICE DAILY. Active [facility] Ondansetron 8 MG Oral Tablet ondansetron HCl 8 mg tablet TAKE ONE (1) TABLET(S) BY MOUTH THREE TIMES A DAY NEEDED. Active [facility] pantoprazole 40 MG Delayed Release Oral Tablet pantoprazole 40 mg tablet,delayed release TAKE ONE (1) TABLET(S) BY MOUTH EVERY DAY. Active [facility] Pentoxifylline 400 MG Extended Release Oral Tablet pentoxifylline ER 400 mg tablet,extended release TAKE ONE (1) TABLET(S) BY MOUTH TWICE A DAY WITH MEALS. Active [facility] Prednisone 5 MG Oral Tablet prednisone 5 mg tablet TAKE ONE (1) TABLET(S) BY MOUTH DAILY WITH FOOD OR MILK. YOU CAN INCREASE THE DOSE TO 10MG DAILY IF YOU HAVE JOINT PAIN OR SWELLING. Active [facility] Promethazine Hydrochloride 25 MG Oral Tablet promethazine 25 mg tablet TAKE ONE (1) TO TWO (2) TABLET(S) BY MOUTH EVERY EIGHT HOURS NEEDED. Active [facility] simvastatin simvastatin Active [facility] Sucralfate 1000 MG Oral Tablet sucralfate 1 gram tablet TAKE ONE (1) TABLET(S) BY MOUTH FOUR TIMES A DAY FOR 10 DAYS. Active [facility] Temazepam 30 MG Oral Capsule temazepam 30 mg capsule TAKE ONE (1) CAPSULE(S) BY MOUTH AT BEDTIME FOR SLEEP. Active [facility] Dexamethasone 1 MG/ML / Tobramycin 3 MG/ML Ophthalmic Suspension tobramycin 0.3 %-dexamethasone 0.1 % eye drops,suspension INSTILL TWO (2) DROPS INTO THE AFFECTED EYE(S) TWICE A DAY. Active [facility] Albuterol Sulfate 0.63 Mg/3 Ml Vial.neb As Needed Active [facility] Alprazolam 0.5 Mg Tab.rapdis Twice A Day as needed for Anxiety Active [facility] Aspirin 81 Mg Tab.chew Daily Active [facility] Azathioprine (Imuran) 50 Mg Tablet Twice A Day Active [facility] Clonidine 1 Each Patch.tdwk Twice A Day Active [facility] Clopidogrel Bisulfate (Plavix) 75 Mg Tablet Daily Active [facility] Diltiazem Hcl (Cardizem La) 360 Mg Tab.sr.24h Daily Active [facility] Doxycycline Hyclate 100 Mg Capsule Every 12 Hours Active [facility] Eliquis Twice A Day Active [facility] Fenofibrate Nanocrystallized (Fenofibrate) 145 Mg Tablet Daily Active [facility] Fluticasone Furoate (Veramyst) 10 Gm [place].susp Twice A Day Active [facility] Hydrocodone Bit/Acetaminophen (Taft 10-325 Tablet) 1 Each Tablet Every 6 Hours as needed for Pain Active [facility] Insulin Detemir (Levemir) 100 Unit/1 Ml Vial Twice A Day Active [facility] Insulin Lispro (Humalog) 100 Unit/1 Ml Cartridge Before Meals And At Bedtime Active [facility] Lisinopril (Prinivil) 20 Mg Tablet Daily Active [facility] Metoclopramide Hcl (Reglan) 5 Mg Tablet Three Times Daily With Meals Active [facility] Metoprolol Tartrate 50 Mg Tablet Daily Active [facility] Montelukast Sodium 10 Mg Tablet Daily Active [facility] Morphabond Every 8 Hrs Active [facility] Nitroglycerin (Nitrostat) 0.4 Mg Tab.subl As Needed Active [facility] Ondansetron (Zofran Odt) 4 Mg Tab.rapdis Three Times A Day Active [facility] Ondansetron Hcl (Zofran*) 4 Mg Tablet Every 8 Hours as needed for Nausea Active [facility] Pantoprazole Sodium (Protonix) 40 Mg Tablet.dr Twice A Day Active [facility] Pentoxifylline 400 Mg Tablet.er Daily Active [facility] Prednisone 10 Mg Tab Daily Active [facility] Pregabalin (Lyrica) 75 Mg Cap Twice A Day Active [facility] Saligen As Needed Active [facility] Simvastatin 40 Mg Tablet Daily Active [facility] Sucralfate (Carafate) 1 Gm/10 Ml Oral.susp Three Times Daily With Meals Active [facility] Temazepam (Restoril) 30 Mg Capsule Qhs Active [facility] Allergies, Adverse Reactions, Alerts Substance Category Reaction Severity Reaction type Status Date Reported Comments Source Kjdkgma-Scg-Hes Reductase Inhibitor MUSCLE ACHES Unknown Propensity to adverse reactions Active 02/18/2018 [facility] PLASTIC TAPE Unknown Allergy to Substance Active 02/18/2018 [facility] Immunizations Immunization Date Given Site Status Last Updated Comments Source Tdap 05/30/2009 completed [facility] Results Order Name Results Value Reference Range Date Interpretation Comments Source Capillary blood glucose measurement by glucometer (mass/volume) Capillary blood glucose measurement by glucometer (mass/volume) 290 70 - 120 02/23/2018 [facility] Automated blood basophil count (count/volume) Automated blood basophil count (count/volume) 0.0 0.0 - 0.1 02/22/2018 [facility] Automated blood basophil count as percentage of total leukocytes Automated blood basophil count as percentage of total leukocytes 0.1 0.0 - 1.0 02/22/2018 [facility] Automated blood eosinophil count Automated blood eosinophil count 0.1 0.0 - 0.4 02/22/2018 [facility] Automated blood eosinophil count as percentage of total leukocytes Automated blood eosinophil count as percentage of total leukocytes 0.8 0.0 - 6.0 02/22/2018 [facility] Automated blood hematocrit (volume fraction) Automated blood hematocrit (volume fraction) 26.1 34.2 - 44.1 02/22/2018 [facility] Automated blood lymphocyte count as percentage ot total leukocytes Automated blood lymphocyte count as percentage ot total leukocytes 24.3 18.0 - 39.1 02/22/2018 [facility] Automated blood monocyte count as percentage of total leukocytes Automated blood monocyte count as percentage of total leukocytes 9.5 4.4 - 11.3 02/22/2018 [facility] Automated blood neutrophil count Automated blood neutrophil count 4.8 2.1 - 6.9 02/22/2018 [facility] Automated blood platelet count (count/volume) Automated blood platelet count (count/volume) 179 140 - 360 02/22/2018 [facility] Automated blood segmented neutrophil count as percentage of total leukocytes Automated blood segmented neutrophil count as percentage of total leukocytes 63.5 38.7 - 80.0 02/22/2018 [facility] Automated erythrocyte mean corpuscular hemoglobin (mass per erythrocyte) Automated erythrocyte mean corpuscular hemoglobin (mass per erythrocyte) 31.7 28 - 32 02/22/2018 [facility] Automated erythrocyte mean corpuscular hemoglobin concentration measurement (mass/volume) Automated erythrocyte mean corpuscular hemoglobin concentration measurement (mass/volume) 33.7 31 - 35 02/22/2018 [facility] Automated erythrocyte mean corpuscular volume Automated erythrocyte mean corpuscular volume 93.9 81 - 99 02/22/2018 [facility] Blood erythrocytes automated count (number/volume) Blood erythrocytes automated count (number/volume) 2.78 3.6 - 5.1 02/22/2018 [facility] Blood hemoglobin measurement (moles/volume) Blood hemoglobin measurement (moles/volume) 8.8 12.0 - 16.0 02/22/2018 [facility] Blood leukocytes automated count (number/volume) Blood leukocytes automated count (number/volume) 7.60 4.8 - 10.8 02/22/2018 [facility] Blood lymphocytes count (number/volume) Blood lymphocytes count (number/volume) 1.9 1.0 - 3.2 02/22/2018 [facility] Blood monocytes automated count (number/volume) Blood monocytes automated count (number/volume) 0.7 0.2 - 0.8 02/22/2018 [facility] Estimated glomerular filtration rate (GFR) determination Estimated glomerular filtration rate (GFR) determination null 60 02/22/2018 [facility] Glucose measurement Glucose measurement 233 74 - 118 02/22/2018 [facility] Serum or plasma anion gap Serum or plasma anion gap 12.9 8 - 16 02/22/2018 [facility] Serum or plasma calcium measurement (mass/volume) Serum or plasma calcium measurement (mass/volume) 9.1 8.4 - 10.2 02/22/2018 [facility] Serum or plasma carbon dioxide, total measurement (moles/volume) Serum or plasma carbon dioxide, total measurement (moles/volume) 27 22 - 29 02/22/2018 [facility] Serum or plasma chloride measurement (moles/volume) Serum or plasma chloride measurement (moles/volume) 102 98 - 107 02/22/2018 [facility] Serum or plasma creatinine measurement (mass/volume) Serum or plasma creatinine measurement (mass/volume) 0.82 0.57 - 1.11 02/22/2018 [facility] Serum or plasma folate measurement (mass/volume) Serum or plasma folate measurement (mass/volume) 5.8 7.0 - 15.4 02/22/2018 [facility] Serum or plasma potassium measurement (moles/volume) Serum or plasma potassium measurement (moles/volume) 3.9 3.5 - 5.1 02/22/2018 [facility] Serum or plasma sodium measurement (moles/volume) Serum or plasma sodium measurement (moles/volume) 138 136 - 145 02/22/2018 [facility] Serum or plasma urea nitrogen measurement (mass/volume) Serum or plasma urea nitrogen measurement (mass/volume) 8 7 - 26 02/22/2018 [facility] Serum or plasma urea nitrogen/creatinine mass ratio Serum or plasma urea nitrogen/creatinine mass ratio 10 6 - 25 02/22/2018 [facility] Red Cell Distribution Width 17.4 11.7 - 14.4 02/22/2018 [facility] IM GRANULOCYTES % 1.8 0.0 - 1.0 02/22/2018 [facility] Absolute Immature Granulocyte (auto 0.14 0 - 0.1 02/22/2018 [facility] Serum or plasma trough vancomycin level at trough (mass/volume) Serum or plasma trough vancomycin level at trough (mass/volume) 18.7 5.0 - 10.0 02/21/2018 [facility] Stool gastrointestinal hemoglobin detection Stool gastrointestinal hemoglobin detection NEGATIVE NEGATIVE 02/20/2018 [facility] Automated urine sediment leukocyte count by microscopy (number/high power field) Automated urine sediment leukocyte count by microscopy (number/high power field) null 0 - 5 02/19/2018 [facility] Bacteria detection in urine sediment by light microscopy Bacteria detection in urine sediment by light microscopy RARE NONE 02/19/2018 [facility] Epithelial cells detection in urine sediment by light microscopy Epithelial cells detection in urine sediment by light microscopy FEW NONE 02/19/2018 [facility] Erythrocytes detection in urine sediment by light microscopy Erythrocytes detection in urine sediment by light microscopy null 0 - 5 02/19/2018 [facility] Specific gravity of Urine by Test strip Specific gravity of Urine by Test strip 1.010 1.010 - 1.025 02/19/2018 [facility] Urine clarity Urine clarity CLEAR CLEAR 02/19/2018 [facility] Urine color determination Urine color determination YELLOW YELLOW 02/19/2018 [facility] Urine erythrocytes detection Urine erythrocytes detection NEGATIVE NEGATIVE 02/19/2018 [facility] Urine glucose detection Urine glucose detection 2+ NEGATIVE 02/19/2018 [facility] Urine ketones detection by automated test strip Urine ketones detection by automated test strip NEGATIVE NEGATIVE 02/19/2018 [facility] Urine leukocyte esterase detection by dipstick Urine leukocyte esterase detection by dipstick NEGATIVE NEGATIVE 02/19/2018 [facility] Urine nitrite detection Urine nitrite detection NEGATIVE NEGATIVE 02/19/2018 [facility] Urine pH measurement by automated test strip Urine pH measurement by automated test strip 6 5 - 7 02/19/2018 [facility] Urine protein measurement by test strip (mass/volume) Urine protein measurement by test strip (mass/volume) NEGATIVE NEGATIVE 02/19/2018 [facility] Urine total bilirubin measurement (mass/volume) Urine total bilirubin measurement (mass/volume) NEGATIVE NEGATIVE 02/19/2018 [facility] Urine urobilinogen measurement by test strip (mass/volume) Urine urobilinogen measurement by test strip (mass/volume) 0.2 0.2 - 1 02/19/2018 [facility] Automated reticulocyte count as percentage of total erythrocytes Automated reticulocyte count as percentage of total erythrocytes 5.0 0.8 - 2.2 02/19/2018 [facility] Blood cobalamin (vitamin B12) measurement (mass/volume) Blood cobalamin (vitamin B12) measurement (mass/volume) 672 213 - 816 02/19/2018 [facility] Erythrocyte sedimentation rate by Westergren method Erythrocyte sedimentation rate by Westergren method 1.0 0 - 20 02/19/2018 [facility] Serum or plasma ferritin measurement (mass/volume) Serum or plasma ferritin measurement (mass/volume) null 4.63 - 204.00 02/19/2018 [facility] Serum or plasma iron binding capacity measurement (mass/volume) Serum or plasma iron binding capacity measurement (mass/volume) 165 261 - 478 02/19/2018 [facility] Serum or plasma iron measurement (mass/volume) Serum or plasma iron measurement (mass/volume) 42 50 - 170 02/19/2018 [facility] Serum or plasma iron saturation measurement (mass fraction) Serum or plasma iron saturation measurement (mass fraction) 25 15 - 50 02/19/2018 [facility] Serum or plasma lactate dehydrogenase measurement (enzymatic activity/volume) Serum or plasma lactate dehydrogenase measurement (enzymatic activity/volume) 174 125 - 220 02/19/2018 [facility] Serum or plasma transferrin measurement (mass/volume) Serum or plasma transferrin measurement (mass/volume) 118 180 - 382 02/19/2018 [facility] Activated partial thromboplastin time (aPTT) in platelet poor plasma bycoagulation assay Activated partial thromboplastin time (aPTT) in platelet poor plasma bycoagulation assay 35.3 23.8 - 35.5 02/18/2018 [facility] Blood culture Blood culture NO GROWTH AFTER 5 DAYS, FINAL REPORT 02/18/2018 [facility] INR in Platelet poor plasma by Coagulation assay INR in Platelet poor plasma by Coagulation assay 1.04 02/18/2018 [facility] Plasma globulin measurement (mass/volume) Plasma globulin measurement (mass/volume) 5.3 2.3 - 3.5 02/18/2018 [facility] Prothrombin time (PT) in platelet poor plasma by coagulation assay Prothrombin time (PT) in platelet poor plasma by coagulation assay 14.5 11.9 - 14.5 02/18/2018 [facility] Serum or plasma alanine aminotransferase measurement (enzymatic activity/volume) Serum or plasma alanine aminotransferase measurement (enzymatic activity/volume) 7 0 - 55 02/18/2018 [facility] Serum or plasma albumin measurement (mass/volume) Serum or plasma albumin measurement (mass/volume) 3.0 3.5 - 5.0 02/18/2018 [facility] Serum or plasma albumin/globulin mass ratio Serum or plasma albumin/globulin mass ratio 0.6 0.8 - 2.0 02/18/2018 [facility] Serum or plasma alkaline phosphatase measurement (enzymatic activity/volume) Serum or plasma alkaline phosphatase measurement (enzymatic activity/volume) 70 40 - 150 02/18/2018 [facility] Serum or plasma amylase measurement (enzymatic activity/volume) Serum or plasma amylase measurement (enzymatic activity/volume) 12 25 - 125 02/18/2018 [facility] Serum or plasma choriogonadotropin ( test) detection Serum or plasma choriogonadotropin ( test) detection NEGATIVE NEGATIVE 02/18/2018 [facility] Serum or plasma lipase measurement (enzymatic activity/volume) Serum or plasma lipase measurement (enzymatic activity/volume) 20 8 - 78 02/18/2018 [facility] Serum or plasma magnesium measurement (mass/volume) Serum or plasma magnesium measurement (mass/volume) 1.3 1.3 - 2.1 02/18/2018 [facility] Serum or plasma protein measurement (mass/volume) Serum or plasma protein measurement (mass/volume) 8.3 6.5 - 8.1 02/18/2018 [facility] Serum or plasma total bilirubin measurement (mass/volume) Serum or plasma total bilirubin measurement (mass/volume) 0.7 0.2 - 1.2 02/18/2018 [facility] Lactic Acid Level 13.5 4.5 - 19.8 02/18/2018 [facility] Aspartate Amino Transf (AST/SGOT) 13 5 - 34 02/18/2018 [facility] Renal epithelial cells detection in urine sediment by light microscopy Renal epithelial cells detection in urine sediment by light microscopy FEW NONE 02/18/2018 [facility] Transitional cells detection in urine sediment by light microscopy Transitional cells detection in urine sediment by light microscopy FEW NONE 02/18/2018 [facility] Yeast identification Yeast identification Organism: NAVEEN ALBICANS 09/30/2017 [facility] Influenza A negative 06/02/2017 [facility] Influenza B negative 06/02/2017 [facility] Vital Signs Vital Sign Value Date Comments Source Diastolic (mm Hg) 64 06/02/2017 [facility] Height 63 06/02/2017 [facility] Systolic (mm Hg) 124 06/02/2017 [facility] Weight 125 06/02/2017 [facility] Encounters Location Location Details Encounter Type Encounter Number Reason For Visit Attending Provider ADM Date DC Date Status Source [place] - [facility] - [id number]_[id number] Wilson-C: [address] [place] [address], Ph. [id number] Thu Grimaldo 06/02/2017 [facility] Registered [facility] [id number] KEIRY DUMONT MD 09/30/2017 [facility] Discharged Inpatient [id number] AIME DUMONT MD 02/18/2018 02/23/2018 [facility] Procedures Procedure Code Date Perfomer Comments Source Computed tomography of chest with contrast [id number] 02/18/2018 [facility] Computed tomography of soft tissues of neck with contrast [id number] 02/18/2018 [facility] EGD BIOPSY SINGLE/MULTIPLE [id number] 09/30/2017 [facility] DILATE ESOPHAGUS 1/MULT PASS [id number] 09/30/2017 [facility] Lumbar Artific Disc 0091T [facility]
[2018-05-31] MEDS ORDERED: SODIUM CHLORIDE 0.9% 1000ML 1,000 ML IV STA (23:42)
[2018-05-31] MEDS ORDERED: GLUCAGON FOR INJ 1 MG VIAL IV ONE (23:45)
[2018-05-31] MEDS ORDERED: PROMETHAZINE 12.5MG/ NACL 0.9% 12.5 MG/50 ML BAG IV ONE (23:45)
--- NOTE | 2018-06-01 00:32 | Diagnostic Imaging Report ---
EXAMINATION: CHEST SINGLE (PORTABLE) INDICATION: PICC line placement. COMPARISON: Chest x-ray 02/18/2018 FINDINGS: AP view TUBES and LINES: Left upper extremity PICC tip overlies the SVC. LUNGS: Lungs are well inflated. Lungs are clear. There is no evidence of pneumonia or pulmonary edema. PLEURA: No pleural effusion or pneumothorax. HEART AND MEDIASTINUM: The cardiomediastinal silhouette is unremarkable. BONES AND SOFT TISSUES: No acute osseous lesion. Soft tissues are unremarkable. UPPER ABDOMEN: No free air under the diaphragm. IMPRESSION: Left upper extremity PICC tip overlies the SVC. No acute thoracic abnormality. No pneumothorax. Signed by: DR. Osman Kumar MD on 06/01/2018 12:29 AM
[2018-06-01 00:50] LABS: BASOPHILS % 0.4 % (0.0-1.0); EOSINOPHILS # (AUTO) 0.1 (0.0-0.4); EOSINOPHILS % 1.5 % (0.0-6.0); HEMATOCRIT 28.5 % (34.2-44.1); HEMOGLOBIN 10.1 g/dL (12.0-16.0); LYMPHOCYTES # (AUTO) 2.4 (1.0-3.2); LYMPHOCYTES % 28.2 % (18.0-39.1); MEAN CORPUSCULAR HEMOGLOBIN 33.2 pg (28-32); MEAN CORPUSCULAR HGB CONC 35.4 g/dL (31-35); MEAN CORPUSCULAR VOLUME 93.8 fL (81-99); MONOCYTES # (AUTO) 0.6 (0.2-0.8); MONOCYTES % 7.5 % (4.4-11.3); NEUTROPHILS # (AUTO) 5.3 (2.1-6.9); NEUTROPHILS % 61.9 % (38.7-80.0); PLATELET COUNT 164 x10e3/uL (140-360); RED BLOOD COUNT 3.04 x10e6/uL (3.6-5.1); RED CELL DISTRIBUTION WIDTH 14.6 % (11.7-14.4)
[2018-06-01 00:51] LABS: ANION GAP 15.8 mmol/L (8-16); BLOOD UREA NITROGEN 15 mg/dL (7-26); BUN/CREATININE RATIO 17 (6-25); CALCIUM 9.9 mg/dL (8.4-10.2); CARBON DIOXIDE 25 mmol/L (22-29); CHLORIDE 102 mmol/L (98-107); CREATININE, SERUM 0.89 mg/dL (0.57-1.11); EST GLOMERULAR FILTRATION RATE > 60 ML/MIN (60-); GLUCOSE 118 mg/dL (74-118); POTASSIUM 3.8 mmol/L (3.5-5.1); SODIUM 139 mmol/L (136-145)
[2018-06-01] MEDS ORDERED: ONDANSETRON HCL INJ 2 MG/ML VIAL IV PRN (01:15)
[2018-06-01] MEDS ORDERED: MORPHINE SULFATE 2 MG/ML SYR IV PRN (01:15)
[2018-06-01] MEDS ORDERED: DEXTROSE 50% SYRINGE 50 ML IV PRN (01:30)
--- OUTSIDE RECORDS SUMMARY | 2018-06-01 01:38 | XMS REPORT | Clinical Summary ---
Author Author ARMANDO Elyssafregori Organization [facility] Address Unknown Phone Unavailable Care Team Providers Care Resource Center Teacher Name Role Phone Randolph Pinon PCP Allergies [...] Dx) 01/03/2018 Outside Orders Central Scheduling after 05/31/2017 Social History Date Tobacco Use Types Packs/Day [...] 0.062 Ss Fracture/F Left: Wrist BIOMET:TRA - [id number] ixation LEONARD Implanted: Qty: 3 on 06/28/2016 by Lui Nevarez IV, MD 06/28/2016111.631 / / [id number] Plt L 6h Va-Lcp 2 Column 631 Fracture/F Left: Wrist SYNTHES:SY - [id number] ixation NTHES [place] Implanted: Qty: 1 on 06/28/2016 by Lui Nevarez IV, MD ..120 / / Scr Lck Va 2.4x20 Ns 120 - Fracture/F Left: Wrist SYNTHES:SY [id number] ixation NTHES [place] Implanted: Qty: 2 on 06/28/2016 by Lui Nevarez IV, MD .210.124 / / Scr Lck Va 2.4x24 Ns 124 - Fracture/F Left: Wrist SYNTHES:SY [id number] ixation NTHES [place] Implanted: Qty: 1 on 06/28/2016 by Lui Nevarez IV, MD .210.118 / / Scr Lck Va 2.4x18 Ns 118 - Fracture/F Left: Wrist SYNTHES:SY [id number] ixation NTHES [place] Implanted: Qty: 2 on 06/28/2016 by Lui Nevarez IV, MD 201.762 / / Scr Crtx Lcp St T8 2.4x12 Ns Fracture/F Left: Wrist SYNTHES:SY 201.762 - [id number] ixation NTHES [place] Implanted: Qty: 2 on 06/28/2016 by Lui Nevarez IV, MD 201.764 / / Scr Crtx Lcp St T8 2.4x14 Ns Fracture/F Left: Wrist SYNTHES:SY 201.764 - [id number] ixation NTHES [place] Implanted: Qty: 2 on 06/28/2016 by Lui Nevraez IV, MD 11/08/2016 [id number] / [id number] / [id number] Allograft Left: Wrist Implanted: Qty: [...] 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 Result No growth in 5 days [facility] Specimen Blood - Central Venous Line Performing Organization Address City/State/Zipcode Phone Number [facility] [address] [place] [address] * CRITICAL CARE (02/17/2018 12:05 PM CDT) [...] CDT) POC-Lactic Acid, Venous 0.9Comment: TESTED AT [facility] 0.9 - 1.7 mmol/L [address] Specimen Blood Performing Organization Address City/State/Zipcode Phone Number [address] * XR chest 1 view portable / bedside (02/17/2018 10:09 AM CDT) Narrative Performed At FINAL [facility]PORT [facility] Chest one view compared to June 29, 2016 Discussion: Right chest Port-A-Cath extends to the lower SVC level. Lungs clear. Heart size normal. No effusion or pneumothorax. Signed: Carolyn Gifford MD Report Verified Date/Time:02/17/2018 11:22:49 Reading Location: [facility] Radiology Reading Room Procedure Note Interface, [...] CDT) WBC 6.7 3.5 - 10.5 K/L [facility] RBC 2.76 (L) 3.93 - 5.22 M/L [facility] Hemoglobin 8.9 (L) 11.2 - 15.7 GM/DL [facility] Hematocrit 25.2 (L) 34.1 - 44.9 % [facility] MCV 91.3 79.4 - 94.8 fL [facility] MCH 32.2 25.6 - 32.2 pg [facility] MCHC 35.3 32.2 - 35.5 GM/DL [facility] RDW 16.6 (H) 11.7 - 14.4 % [facility] Platelets 156 150 - 450 K/CU MM [facility] MPV 10.3 9.4 - 12.3 fL [facility] nRBC 0 0 - 0 /100 WBC [facility] % Neutros 65 % [facility] % Lymphs 20 % [facility] % Monos 13 % [facility] % Eos 1 % [facility] % Baso 0 % [facility] # Neutros 4.36 1.56 - 6.13 K/L [facility] # Lymphs 1.35 1.18 - 3.74 K/L [facility] # Monos 0.88 (H) 0.24 - 0.36 K/L [facility] # Eos 0.07 0.04 - 0.36 K/L [facility] # Baso 0.02 0.01 - 0.08 K/L [facility] Immature 1 0 - 1 % [facility] Granulocytes-Relative [facility] Specimen Blood Performing Organization Address City/[facility] [place] [address] [facility] * Troponin I (02/17/2018 10:06 AM CDT) Troponin I <0.01 0.00 - 0.03 ng/mL [facility] Specimen Blood Narrative Performed At Troponin I (TnI) levels must be interpreted in the context of the presenting [facility] symptoms and the clinical findings. Elevated TnI levels indicate myocardial [facility] damage, but are not specific for ischemic heart disease. Elevated TnI levels are seen in patients with other cardiac conditions (including myocarditis and congestive heart failure), and slight TnI elevations occur in patients with other conditions, including sepsis, renal failure, acidosis, acute neurological disease, and persistent tachyarrhythmia. Performing Organization Address City/[facility] [place] [address] [phone] [place] [address] * Phosphorus (02/17/2018 10:06 AM CDT) Phosphorus 1.8 (L) 2.3 - 4.7 mg/dL [facility] Specimen Blood Performing Organization Address City/[facility]/[place] [address] [facility] * Magnesium (02/17/2018 10:06 AM CDT) Magnesium 1.6 1.6 - 2.6 mg/dL [facility] Specimen Blood Performing Organization Address City/[facility]/Zipcode Phone Number [facility] [address] [place] [address] [facility] * Hepatic function panel (02/17/2018 10:06 AM CDT) Protein, Total 9.1 (H) 6.0 - 8.3 gm/dL [facility] Albumin 3.6 3.5 - 5.0 g/dL [facility] Total Bilirubin 1.1 0.2 - 1.2 mg/dL [facility] Bilirubin, Direct 0.4 0.1 - 0.5 mg/dL [facility] Alkaline Phosphatase 78 40 - 150 U/L [facility] AST 13 5 - 34 U/L [facility] ALT 6 6 - 55 U/L [facility] Specimen Blood Performing Organization Address City/State/Zipcode Phone Number [facility] [address] [place] [address] [facility] * Basic Metabolic Panel (02/17/2018 10:06 AM CDT) Sodium 131 (L) 136 - 145 meq/L [facility] Potassium 4.4 3.5 - 5.1 meq/L [facility] Chloride 96 (L) 98 - 107 meq/L [facility] CO2 28 22 - 29 meq/L [facility] BUN 12 7 - 21 mg/dL [facility] Creatinine 0.96 0.57 - 1.25 mg/dL [facility] Glucose 269 (H) 70 - 105 mg/dL [facility] Calcium 9.8 8.4 - 10.2 mg/dL [facility] EGFR 60Comment: ESTIMATED GFR IS mL/min/1.73 sq m [facility] NOT ACCURATE CREATININE [facility] CLEARANCE IN PREDICTING GLOMERULAR FILTRATION RATE. ESTIMATED GFR IS NOT APPLICABLE FOR DIALYSIS PATIENTS. Specimen Blood Performing Organization Address City/State/Zipcode Phone Number [facility] [address] [place] [address] [facility] * IR CV Access Fluoro (01/09/2018 3:27 PM CDT) Narrative Performed At FINAL REPORT [employer] Chest dagoberto cath insertion: Pertinent clinical information: [...] guide wirewas advanced centrally.A 20 cm 7 [place] [employer]port catheter was advanced with its distal [...] MD Report Verified Date/Time:01/09/2018 16:18:09 Reading Location: [place] [id number] Angio Body Reading Room Procedure Note Interface, [...] was advanced centrally. A 20 cm 7 [place] [employer] catheter was advanced with its distal [...] Report Verified Date/Time: 01/09/2018 16:18:09 Reading Location: [facility] B1 P048 Angio Body Reading Room Performing Organization Address City/State/Zipcode Phone Number GE RIS * PT/aPTT (01/09/2018 10:48 AM CDT) Protime 13.4 11.7 - 14.7 seconds [facility] INR 1.0 <=5.9 [facility] PTT 27.2 22.5 - 36.0 seconds [facility] Specimen Blood Narrative Performed At RECOMMENDED COUMADIN/WARFARIN INR THERAPY RANGES [facility] STANDARD DOSE: 2.0 - 3.0 Includes: PROPHYLAXIS for venous thrombosis, [facility] systemic embolization; TREATMENT for venous thrombosis and/or pulmonary embolus. HIGH RISK: Target INR is 2.5-3.5 for patients with mechanical heart valves. Performing Organization Address City/[facility]/Zipcode Phone Number [facility] [address] [place], [place] [phone] [facility] * Platelet count (01/09/2018 10:48 AM CDT) Platelets 238 150 - 450 K/CU MM [facility] Specimen Blood Performing Organization Address City/[facility]/Zipcode Phone Number [facility] [address] [place] [address] [facility] after 05/31/2017 Insurance Payer Benefit Subscriber ID Type Phone Address Plan / Group [employer] - MEDICARE MGD CARE [employer] xxxxxxxx [phone] [address] [place] [address] HMO POS PPO Advance Directives For more information, please contact: [address] [address] Date Inactivated Comments Code Status [...]
[2018-06-01] MEDS ORDERED: PROAIR HFA INH8.5 GM INH (01:40)
[2018-06-01] MEDS ORDERED: PROMETHAZINE HC25 M1 PO (01:40)
[2018-06-01] MEDS ORDERED: VENTOLIN HFA18 GM INH (01:40)
[2018-06-01] MEDS ORDERED: BENZONATATE200 MG PO (01:40)
[2018-06-01] MEDS ORDERED: NYSTATIN100000 UNI PO (01:40)
[2018-06-01] MEDS ORDERED: TOBRAMYCIN SULFA5 ML OU (01:40)
[2018-06-01] MEDS ORDERED: CYCLOBENZAPRINE5 MG PO (01:40)
[2018-06-01] MEDS ORDERED: PILOCARPINE HC7.5 MG PO (01:40)
[2018-06-01] MEDS ORDERED: CARTIA XT180 MG PO (01:40)
[2018-06-01] MEDS ORDERED: SULFACETAMIDE S15 ML OU (01:40)
[2018-06-01] MEDS ORDERED: ACYCLOVIR400 MG PO (01:40)
[2018-06-01] MEDS ORDERED: MOMETASONE FURO15 G1 TOP (01:44)
[2018-06-01] MEDS ORDERED: MUPIROCIN22 GM TOP (01:44)
[2018-06-01] MEDS ORDERED: DICLOFENAC CREAM TOP (01:44)
[2018-06-01] MEDS: SODIUM CHLORIDE 0.9% 1000ML 1,000 ML IV SCH ×3 (01:47→16:05)
--- NOTE | 2018-06-01 02:50 | NUR ---
RCV PT FROM ER VIA STRETCHER AAOX3. NO S/S OF DISTRESS NOTED. NO COMPLAINTS VOICED AT THIS TIME. IV FLUIDS INFUSING TO LEFT UA PICC. ORIENTED PT AND FAMILY TO UNIT. BED LOCKED AND IN LOW POSITION. CALL LIGHT WITHIN REACH. SIDE RAILS UPX2. HOB ELEVATED. BED ALARM ON.
[2018-06-01] MEDS: PANTOPRAZOLE INJ 40 MG in SODIUM CHLORIDE 0.9% 50ML 50 ML IV SCH ×4 (03:45→16:05)
[2018-06-01 04:00] VITALS: BP_SYST 143; BP_SYST 150; BP_DIAS 70; BP_DIAS 78
[2018-06-01 06:29] LABS: INR 0.9
[2018-06-01] MEDS: INSULIN LISPRO 100 UNIT/1 ML 3ML VIAL SQ SCH ×3 (07:30→17:53)
[2018-06-01 08:17] VITALS: BP 144/64
[2018-06-01 08:30] VITALS: BP 144/64
--- NOTE | 2018-06-01 08:30 | NUR ---
Patient received lying in bed, AAOx3. Assessment complete, vss, no c/o's. Remains NPO for scheduled egd today at noon. Discussed plan for day
[2018-06-01] MEDS ORDERED: MORPHINE SULFATE INJ 4 MG/ML INJ IV PRN (08:45)
--- NOTE | 2018-06-01 11:30 | NUR ---
pt off floor for egd
[2018-06-01] MEDS ORDERED: METOCLOPRAMIDE HCL 10 MG/2ML VIAL ONE (12:44)
[2018-06-01] MEDS ORDERED: FLUCONAZOLE 200 MG/100 ML 100 ML IV ONE (13:15)
[2018-06-01 13:23] VITALS: BP 107/52
--- NOTE | 2018-06-01 13:45 | NUR ---
received report, pt returned to room. no c/o, aa/o x3
--- NOTE | 2018-06-01 14:57 | Operative Report ---
DATE OF PROCEDURE: June 01, 2018 REFERRING PHYSICIAN: Dr. Margarito Garcia PROCEDURE PERFORMED: Esophagogastroduodenoscopy with foreign body removal and esophageal dilatation with biopsies. INDICATIONS FOR PROCEDURE: Dysphagia, foreign body in the esophagus. MEDICATION: Patient was done under MAC. Please see anesthesiologist's note. PROCEDURE: With the patient in the left lateral decubitus position, the flexible fiberoptic Olympus gastroscope was introduced into the esophagus under direct visualization without any difficulty. Some large solid debris were noted stuck in the distal esophagus. Those were removed with a combination of the Rod Net and alligator forceps. The esophageal mucosa was covered with numerous yellowish to whitish plaques suspicious for brenda, and brushings were obtained and sent to stain for brenda. There was a tight stricture noted at the GE junction which could not be traversed with the scope, and that was dilated to a size 14 Savary over a wire and followed with a size 46-Bengali Aden. The scope was then reintroduced into the esophagus, and it traversed the strictured site with ease and a small hiatal hernia and was advanced into the stomach. Mucosa overlying the antrum revealed some patchy, intense erythema and moderate edema. Biopsies were obtained and sent to stain for H. pylori. Pylorus was of normal contour and shape. It was intubated with ease, and the scope was advanced all the way to the 2nd portion of the duodenum. The scope was then withdrawn slowly. Mucosa overlying the proximal 2nd portion and the duodenal bulb grossly appeared to be within normal limits. The scope was then withdrawn back into the stomach and retroflexed. Mucosa overlying the fundus and the cardia appeared to be within normal limits. The scope was then straightened out. It was subsequently withdrawn. Patient tolerated the procedure well. IMPRESSION 1. Solid debris in the esophagus removed per Rod Net and alligator forceps. 2. Rule out brenda esophagitis. 3. Esophageal stricture, tight, at gastroesophageal junction, dilated to size 14 Savary over a wire and size 46-Bengali Aden. 4. Small hiatal hernia. 5. Gastritis, biopsied. Biopsies sent to stain for H. pylori. PLAN: Follow up histology. Continue PPI therapy. Initiate Diflucan 200 mg IV daily and start full liquid diet. Job#: [id number] cc:ANABEL GARCIA DO
[2018-06-01 17:33] VITALS: BP 141/62
[2018-06-01] MEDS ORDERED: FENTANYL CITRATE/PF 100MCG/2 ML INJ ONE (17:48)
[2018-06-01] MEDS ORDERED: MIDAZOLAM HCL 2 MG/2 ML VIAL ONE (17:48)
[2018-06-01] MEDS ORDERED: PROPOFOL IV EMULSION 10 MG/ML 50 ML VIAL ONE (18:04)
[2018-06-01] MEDS ORDERED: LIDOCAINE HCL 2% LOCAL INJ 5 ML SDV VIAL INJ ONE (18:04)
[2018-06-01 19:26] VITALS: BP 143/62
--- NOTE | 2018-06-01 19:30 | NUR ---
RECEIVED THE PT IN REPORT.AAOX4.AMBULATES.STABLE CONDITION.
[2018-06-01] MEDS ORDERED: ACETAMINOPHEN 325 MG TAB PO PRN (20:00)
--- NOTE | 2018-06-01 20:00 | NUR ---
PT HAS C/O HEADACHE.NOTIFIED TO .RECEIVED ORDERS.CARRIED OUT THE ORDER.
--- NOTE | 2018-06-01 20:45 | NUR ---
DISCHARGE ASSESSMENT DONE.PROVIDED DISCHARGE SUMMORY AND EDUCATION INFORMATION.GIVEN FOLLOW UP APPOINTMENTS AND ORDERS .PT LEFT THE UNIT IN A STABLE CONDITION.
== END 2018-06-01 20:45 | disposition home or self-care (01) ==
LOC: ER 21:41 → ERHOLD 06-01 01:16 → MED/SURG 06-01 02:45
DX: T18.128A Food in esophagus causing other injury, initial encounter (principal); I10 Essential (primary) hypertension; E11.9 Type 2 diabetes mellitus without complications; M34.9 Systemic sclerosis, unspecified; E78.5 Hyperlipidemia, unspecified; Z88.8 Allergy status to other drugs, medicaments and biological substances; Z91.048 Other nonmedicinal substance allergy status; K44.9 Diaphragmatic hernia without obstruction or gangrene; K29.70 Gastritis, unspecified, without bleeding; K22.2 Esophageal obstruction; G45.9 Transient cerebral ischemic attack, unspecified; J44.9 Chronic obstructive pulmonary disease, unspecified; D64.9 Anemia, unspecified; I25.10 Atherosclerotic heart disease of native coronary artery without angina pectoris
CPT/HCPCS: 36415; 43239; 43247; 43249; 71045; 80048; 82948; 85025; 85610; 85730; 88305; 88312; 99284; G0378; J1450; J1610; J2001; J2250; J2270; J2405; J2550; J2765; J7030; 43235; 43250; 43450